=== PATIENT | female | born 1980 | race Caucasian/White ===

== ENCOUNTER 2018-05-10 10:21 | Emergency (ER) | payer OTHER ==
[~2018-05-10] VITALS: Ht 167.6 cm; Wt 68.0 kg
[2018-05-10 10:30] VITALS: BP 141/90
--- NOTE | 2018-05-10 10:57 | PHYS DOC ---
Past History Past Medical History: CVA Past Surgical History: Hysterectomy Alcohol Use: Rarely Drug Use: None Adult General Chief Complaint Chief Complaint: ANKLE PROBLEM HPI HPI 37-year-old female patient states she twisted her right ankle this morning and complaining of pain that is worse with bearing weight and walking. Patient states she had broken the same ankle previously and concerns for another fracture. Patient denies other injuries and no neurovascular deficit. Patient does have numbness of medial side of right foot since her injury 2 years ago. Review of Systems Review of Systems Constitutional: Denies fever or chills [] Eyes: Denies change in visual acuity, redness, or eye pain [] HENT: Denies nasal congestion or sore throat [] Respiratory: Denies cough or shortness of breath [] Cardiovascular: No additional information not addressed in HPI [] GI: Denies abdominal pain, nausea, vomiting, bloody stools or diarrhea [] : Denies dysuria or hematuria [] Musculoskeletal: Denies back pain , reports joint pain [] Integument: Denies rash or skin lesions [] Neurologic: Denies headache, focal weakness , reports sensory changes [] Endocrine: Denies polyuria or polydipsia [] All other systems were reviewed and found to be within normal limits, except as documented in this note. Current Medications Current Medications Current Medications Medications (Trade) Dose Ordered Sig/[facility] Start Time Stop Time Status Last Admin Dose Admin Naproxen (Naprosyn) 500 mg 1X ONCE 05/10/18 10:45 05/10/18 10:46 UNV Physical Exam Physical Exam Constitutional: Well developed, well nourished, mild distress, non-toxic appearance. [] HENT: Normocephalic, atraumatic Eyes: PERRLA, EOMI, conjunctiva normal, no discharge. [] Neck: Normal range of motion, no tenderness, supple, no stridor. [] Cardiovascular:Heart rate regular rhythm, no murmu Skin: Warm, dry, no erythema, no rash. [] Back: No tenderness, no CVA tenderness. [] Extremities: Left ankle without deformity or edema, mild tenderness without limited range of motion, no cyanosis, no clubbing, no edema. [] Neurologic: Alert and oriented X 3, normal motor function, normal sensory function, no focal deficits noted. [] Psychologic: Affect normal, judgement normal, mood normal. [] Current Patient Data Vital Signs Vital Signs Date Time Temp Pulse Resp B/P (MAP) Pulse Ox O2 Delivery O2 Flow Rate FiO2 05/10/18 10:30 98.2 94 22 98 Room Air EKG EKG [] Radiology/Procedures Radiology/Procedures [][address] [address] IMAGING REPORT Signed PATIENT: JEMAL ROUSSEAU ACCOUNT: [id number] : 1980 LOCATION: ER AGE: 37 SEX: F EXAM STATUS: REG ER ORD. PHYSICIAN: NAYELI VERGARA MD REASON: injury PROCEDURE: ANKLE RIGHT 3V Right ankle, 3 views, 05/10/2018: HISTORY: Ankle injury No acute fracture or dislocation is identified. There is mild subcutaneous edema. IMPRESSION: No acute bony abnormality is detected. Electronically signed by: Aguilar Gaytan MD (05/10/2018 11:19 AM) [facility] DICTATED AND SIGNED BY: AGUILAR GAYTAN MD DATE: 05/10/18 1118 CC: NGUYEN GOMEZ; NAYELI VERGARA MD ~ Course & Med Decision Making Course & Med Decision Making Pertinent Imaging studies reviewed. (See chart for details) discharge: I've spoken with the patient and/or caregivers. I've explained the patient's condition, diagnosis and treatment plan based on information available to me at this time. I've answered the patient's and/or caregivers questions and addressed any concerns. The patient and/or caregivers have a good understanding the patient's diagnosis, condition and treatment plan as can be expected at this point. Vital signs have been stabilized. The patient's condition is stable for discharge from the emergency department. The patient will pursue further outpatient evaluation with her primary care provider or other designated consulting physician as outlined in the discharge instructions. Patient and/or caregivers are agreeable to this plan of care and follow-up instructions have been explained in detail. The patient and/or caregivers have received these instructions in written format and expressed understanding of these discharge instructions. The patient and her caregivers are aware that if any significant change in condition or worsening of symptoms should prompt him to immediately return to this of the closest emergency department. If an emergent department is not readily available I would encourage him to call 911. [] Marco Disclaimer Dragon Disclaimer This electronic medical record was generated, in whole or in part, using a voice recognition dictation system. Departure Departure: Impression: Primary Impression: Right ankle sprain Disposition: HOME, SELF-CARE (at 11:30) Condition: STABLE Referrals: NGUYEN GOMEZ (PCP) Patient Instructions: Ankle Sprain Additional Instructions: Plan ice on the affected area Follow-up with your primary care physician in 3-5 days Return to ER if not getting better Scripts Hydrocodone Bit/Acetaminophen (NORCO 5-325 TABLET) 1 Each Tablet 1 TAB PO PRN Q6HRS PRN for PAIN, #10 TAB 0 Refills Prov: NAYELI VERGARA MD 05/10/18 Naproxen (NAPROSYN) 500 Mg Tablet 1 TAB PO BID, #20 TAB Prov: NAYELI VERGARA MD 05/10/18 NAYELI VERGARA MD May 10, 2018 10:57
--- NOTE | 2018-05-10 11:22 | RAD ---
Right ankle, 3 views, 05/10/2018: HISTORY: Ankle injury No acute fracture or dislocation is identified. There is mild subcutaneous edema. IMPRESSION: No acute bony abnormality is detected. Electronically signed by: Aguilar Gaytan MD (05/10/2018 11:19 AM) [facility]
[2018-05-10] MEDS ORDERED: NAPROXEN 500 MG TABLET PO ONE (11:30)
[2018-05-10] MEDS ORDERED: HYDR-971 PO (11:33)
[2018-05-10] MEDS ORDERED: NAPR-683 PO (11:33)
== END 2018-05-10 11:45 | disposition home or self-care (01) ==
LOC: ER 10:21
DX: S93.401A Sprain of unspecified ligament of right ankle, initial encounter (principal); Z86.73 Personal history of transient ischemic attack (TIA), and cerebral infarction without residual deficits; X50.9XXA Other and unspecified overexertion or strenuous movements or postures, initial encounter; Y93.89 Activity, other specified; Y99.8 Other external cause status; Y92.89 Other specified places as the place of occurrence of the external cause
CPT/HCPCS: 29515; 73610; 99284

== ENCOUNTER → 2018-06-21 | Outpatient (CLI) | payer OTHER ==
[~2018-06-21] MED LIST: HYDR-971 PO; NAPR-683 PO
[2018-06-21 11:11] LABS: BARBITURATES NEG (NEG); BENZODIAZEPINES NEG (NEG); CANNABINOIDS NEG (NEG); COCAINE NEG (NEG); METHADONE NEG (NEG); OPIATES NEG (NEG); PHENCYCLIDINE NEG (NEG)
[2018-06-21 11:12] LABS: AMPHETAMINE/METHAMPHETAMINE NEG (NEG)
== END | disposition home or self-care (01) ==
LOC: SURG 09:23
PROVIDERS: ATTEND Anesthesiology
DX: Z01.818 Encounter for other preprocedural examination (principal); F11.90 Opioid use, unspecified, uncomplicated
CPT/HCPCS: 36415; 80307; 99204; G0479

== ENCOUNTER 2018-08-15 13:18 | Emergency (ER) | payer OTHER ==
[~2018-08-15] VITALS: Ht 167.6 cm; Wt 81.6 kg
[2018-08-15] MEDS ORDERED: IV NORMAL SALINE 1,000ML 1,000 ML IV SCH (13:47)
[2018-08-15 13:48] VITALS: BP 136/91
[2018-08-15 14:23] LABS: BASO # 0.1 x10^3/uL (0.0-0.2); BASO % 1 % (0-3); EOS # 0.4 x10^3/uL (0.0-0.7); EOS % 6 % (0-3); HEMATOCRIT 40.5 % (36.0-47.0); HEMOGLOBIN 13.9 g/dL (12.0-15.5); LYMPH # 2.2 x10^3/uL (1.0-4.8); LYMPH % 34 % (24-48); MEAN CORPUSCULAR HEMOGLOBIN 33 pg (25-35); MEAN CORPUSCULAR HGB CONC 34 g/dL (31-37); MEAN CORPUSCULAR VOLUME 95 fL (79-100); MONO # 0.4 x10^3/uL (0.0-1.1); MONO % 6 % (0-9); NEUT # 3.5 x10^3uL (1.8-7.7); NEUT % 54 % (31-73); PLATELET COUNT 325 x10^3/uL (140-400); RED BLOOD COUNT 4.25 x10^6/uL (3.50-5.40); RED CELL DISTRIBUTION WIDTH 13.4 % (11.5-14.5); WHITE BLOOD COUNT 6.5 x10^3/uL (4.0-11.0)
--- NOTE | 2018-08-15 14:33 | RAD ---
AP and Lateral Views of the Chest 08/15/2018 1:47 PM Indication: Palpitations Comparison: None Findings: There is no focal consolidation or infiltrate identified. The cardiomediastinal silhouette is within normal limits. There is no evidence of pneumothorax or pleural effusion. No acute osseous abnormalities are identified. Impression: No evidence of acute cardiopulmonary process. Electronically signed by: Jhonny Bradley MD (08/15/2018 2:30 PM) [facility]
--- NOTE | 2018-08-15 14:34 | RAD ---
CT head without intravenous contrast History: Posterior headache. Pain behind left eye. History of stroke. Comparison: None. Technique: Axial images are obtained of the head from the skull base through the vertex without IV contrast. Exposure: One or more of the following individualized dose reduction techniques were utilized for this examination: 1. Automated exposure control 2. Adjustment of the mA and/or kV according to patient size 3. Use of iterative reconstruction technique Findings: The ventricles are appropriate in size, shape, and location for the patient's age. No obvious intracranial mass, mass-effect, midline shift, hemorrhage or obvious acute infarction is identified. Basilar cisterns are patent. Bone windows demonstrate no acute calvarial abnormality. The visualized paranasal sinuses appear clear. Impression: No acute intracranial process. Please note that CT can be relatively insensitive to acute ischemic infarction for up to 24 hours after symptom onset. Electronically signed by: Jeff King MD (08/15/2018 2:31 PM) [facility]
[2018-08-15 14:38] LABS: ALBUMIN 3.9 g/dL (3.4-5.0); ALBUMIN/GLOBULIN RATIO 1.1 (1.0-1.7); CALCIUM 9.3 mg/dL (8.5-10.1); CREATININE 0.9 mg/dL (0.6-1.0); GFR 70.5; MAGNESIUM 1.7 mg/dL (1.8-2.4); TOTAL BILIRUBIN 0.1 mg/dL (0.2-1.0); TOTAL PROTEIN 7.3 g/dL (6.4-8.2)
[2018-08-15] MEDS ORDERED: KETOROLAC 30 MG/ML VIAL. IV ONE (15:00)
[2018-08-15] MEDS ORDERED: MAGNESIUM OXIDE 400 MG TABLET PO ONE (15:00)
[2018-08-15] MEDS ORDERED: NAPR-683 PO (15:23)
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
--- NOTE | 2018-08-15 16:34 | EKG ---
[address] [address] Test Date: 2018-08-15 Test Time: 13:42:08 Pat Name: JEMAL RUSSO Department: Room: Gender: F Intelligence Applications: : 1980 Requested By: NAYELI VERGARA Order Number: [id number] Reading MD: Suleman Rodriguez MD Measurements Intervals Hanna Rate: 105 P: 62 DE: 114 QRS: 64 QRSD: 84 T: 48 QT: 332 QTc: 443 Interpretive Statements SINUS TACHYCARDIA Electronically Signed On 08-18-2018 11:48:37 CDT by Suleman Rodriguez MD
== END 2018-08-15 15:58 | disposition home or self-care (01) ==
LOC: ER 13:18
DX: F41.0 Panic disorder [episodic paroxysmal anxiety] (principal); R42 Dizziness and giddiness; R51 Headache; R00.2 Palpitations; E83.42 Hypomagnesemia; R79.89 Other specified abnormal findings of blood chemistry; Z86.73 Personal history of transient ischemic attack (TIA), and cerebral infarction without residual deficits; E78.00 Pure hypercholesterolemia, unspecified; Z88.2 Allergy status to sulfonamides; Z88.5 Allergy status to narcotic agent
CPT/HCPCS: 36415; 70450; 71046; 80053; 83735; 84484; 85025; 93005; 96361; 96374; 99285; J1885; J7030

== ENCOUNTER → 2018-09-20 | Outpatient (CLI) | payer OTHER ==
[~2018-09-20] MED LIST changes: +BUPIVACAINE MPF 0.5% 30 ML VIAL. ONE; +CYCL-331 PO; +HYDR-3165 PO; -HYDR-971 PO; +methylPREDNISolone ACETATE 40 MG/ML VIAL. ONE
== END | disposition home or self-care (01) ==
LOC: SURG 09:13
PROVIDERS: ATTEND Anesthesiology
DX: M79.18 Myalgia, other site (principal); G89.4 Chronic pain syndrome; Z86.73 Personal history of transient ischemic attack (TIA), and cerebral infarction without residual deficits; M19.90 Unspecified osteoarthritis, unspecified site; M47.26 Other spondylosis with radiculopathy, lumbar region; Z88.2 Allergy status to sulfonamides; Z88.6 Allergy status to analgesic agent; Z79.899 Other long term (current) drug therapy; Z90.710 Acquired absence of both cervix and uterus
CPT/HCPCS: 20552; J1030; J3490; 20553

== ENCOUNTER 2018-10-01 18:11 | Emergency (ER) | payer OTHER ==
[~2018-10-01] VITALS: Ht 167.6 cm; Wt 84.4 kg
[2018-10-01 18:11] VITALS: BP 139/76
[~2018-10-01 18:11] MED LIST changes: -BUPIVACAINE MPF 0.5% 30 ML VIAL. ONE; -CYCL-331 PO; -methylPREDNISolone ACETATE 40 MG/ML VIAL. ONE
[2018-10-01] MEDS ORDERED: oxyCODONE/APAP 7.5/325 1 TAB TABLET PO ONE (19:00)
[2018-10-01] MEDS ORDERED: CYCLOBENZAPRINE 10 MG TABLET. PO ONE (19:00)
--- NOTE | 2018-10-01 19:34 | RAD ---
PQRS Compliance Statement: One or more of the following individualized dose reduction techniques were utilized for this examination: 1. Automated exposure control 2. Adjustment of the mA and/or kV according to patient size 3. Use of iterative reconstruction technique CT cervical spine spine without contrast 10/01/2018 7:06 PM INDICATION: Neck injury tonight. Pain at the base of the neck radiating to the shoulders and upper back. COMPARISON: None available TECHNIQUE: Multiple axial CT images of the cervical spine were obtained without intravenous contrast. Coronal and sagittal reformats are provided. FINDINGS: There is straightening of the normal cervical lordosis. Otherwise, no significant spondylolisthesis. Skull base is intact. Craniocervical junction is normal in appearance. Atlantoaxial articulation is normal. Vertebral body heights are maintained without evidence for acute fracture. Lucency involving an anterior marginal osteophyte at the anterior inferior margin of C5 is favored to be chronic as it is well corticated. No significant prevertebral edema. Facet joints are within normal limits. No significant osseous neural foraminal stenosis. No significant osseous spinal canal stenosis. Transverse foramen are intact. There is no prevertebral soft tissue swelling. Thyroid gland is normal in appearance. Visualized portions of the lung apices are normal without evidence for suspicious pulmonary nodule or infiltrate. IMPRESSION: 1. No acute fracture or malalignment of the cervical spine. Electronically signed by: Kaylynn Salvador MD (10/01/2018 7:30 PM) [facility]
[2018-10-01] MEDS ORDERED: CYCL-331 PO (19:40)
[2018-10-01] MEDS ORDERED: HYDR-3165 PO (19:40)
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
== END 2018-10-01 19:48 | disposition home or self-care (01) ==
LOC: ER 18:11
DX: S13.4XXA Sprain of ligaments of cervical spine, initial encounter (principal); S23.3XXA Sprain of ligaments of thoracic spine, initial encounter; F41.9 Anxiety disorder, unspecified; E78.00 Pure hypercholesterolemia, unspecified; Z86.73 Personal history of transient ischemic attack (TIA), and cerebral infarction without residual deficits; Z90.710 Acquired absence of both cervix and uterus; Z88.2 Allergy status to sulfonamides; Z88.5 Allergy status to narcotic agent; W50.0XXA Accidental hit or strike by another person, initial encounter; Y93.89 Activity, other specified; Y92.89 Other specified places as the place of occurrence of the external cause; Y99.8 Other external cause status
CPT/HCPCS: 72125; 99284-25

== ENCOUNTER 2018-12-14 12:14 | Emergency (ER) | payer OTHER ==
[~2018-12-14] VITALS: Ht 167.6 cm; Wt 83.9 kg
[~2018-12-14 12:14] MED LIST changes: +CYCL-331 PO
[2018-12-14] MEDS ORDERED: diphenhydrAMINE 50 MG/ML VIAL IV ONE (12:53)
[2018-12-14] MEDS ORDERED: KETOROLAC 30 MG/ML VIAL. IV ONE (12:53)
[2018-12-14] MEDS ORDERED: ONDANSETRON PF 4 MG/2 ML VIAL. ONE (12:53)
[2018-12-14] MEDS ORDERED: IV NORMAL SALINE 1,000ML 1,000 ML IV SCH (12:53)
[2018-12-14] MEDS ORDERED: KETOROLAC 30 MG/ML VIAL. ONE (12:53)
[2018-12-14] MEDS ORDERED: ONDANSETRON PF 4 MG/2 ML VIAL. IV ONE (12:53)
[2018-12-14] MEDS ORDERED: diphenhydrAMINE 50 MG/ML VIAL ONE (12:53)
[2018-12-14 14:48] VITALS: BP 109/76
[2018-12-14 14:55] LABS: CALCIUM 8.6 mg/dL (8.5-10.1); CREATININE 0.8 mg/dL (0.6-1.0); GFR 80.7; POTASSIUM 3.9 mmol/L (3.5-5.1)
[2018-12-14 14:59] LABS: BASO % 0 % (0-3); EOS # 0.3 x10^3/uL (0.0-0.7); EOS % 3 % (0-3); HEMATOCRIT 39.2 % (36.0-47.0); HEMOGLOBIN 13.3 g/dL (12.0-15.5); LYMPH % 26 % (24-48); MEAN CORPUSCULAR HEMOGLOBIN 33 pg (25-35); MEAN CORPUSCULAR HGB CONC 34 g/dL (31-37); MEAN CORPUSCULAR VOLUME 96 fL (79-100); MONO # 0.4 x10^3/uL (0.0-1.1); MONO % 5 % (0-9); NEUT # 5.1 x10^3uL (1.8-7.7); NEUT % 66 % (31-73); PLATELET COUNT 285 x10^3/uL (140-400); RED BLOOD COUNT 4.07 x10^6/uL (3.50-5.40); RED CELL DISTRIBUTION WIDTH 12.9 % (11.5-14.5); WHITE BLOOD COUNT 7.8 x10^3/uL (4.0-11.0)
== END 2018-12-14 14:37 | disposition home or self-care (01) ==
LOC: ER 12:14
DX: R51 Headache (principal); R30.0 Dysuria; R35.0 Frequency of micturition; R07.9 Chest pain, unspecified; F17.200 Nicotine dependence, unspecified, uncomplicated; Z90.710 Acquired absence of both cervix and uterus
CPT/HCPCS: 36415; 80048; 85025; 96374; 96375; 99283; J1200; J1885; J2405; J7030

== ENCOUNTER 2019-02-17 14:24 | Emergency (ER) | payer OTHER ==
[~2019-02-17] VITALS: Ht 167.6 cm; Wt 86.5 kg
[2019-02-17] MEDS ORDERED: FAMOTIDINE 20 MG/2 ML VIAL IVP ONE (15:15)
[2019-02-17] MEDS ORDERED: ONDANSETRON PF 4 MG/2 ML VIAL. IV ONE (15:15)
[2019-02-17] MEDS ORDERED: IV NORMAL SALINE 1,000ML 1,000 ML IV ONE (15:15)
--- NOTE | 2019-02-17 15:28 | PHYS DOC ---
Past History Past Medical History: Anxiety, CVA, High Cholesterol, Migraines, TIA, Other Past Surgical History: Hysterectomy Alcohol Use: Occasionally Drug Use: None Adult General Chief Complaint Chief Complaint: NAUSEA/VOMITING/DIARRHEA HPI HPI Patient is a 38 year old female who presents with nausea, vomiting, and diarrhea since Wednesday. She states it started after eating at [employer] for lunch. Dr. Curtis prescribed her Flagyl for "food poisoning", but she hasn't been able to take it consistently because the taste of it makes her vomit. She also complains of intermittent palpitations and SOB, due to increased anxiety and dehydration. She denies any blood in vomit or stool, although there is some blood on the toilet paper when wiping sometimes. Patient denies any recent travel. Her youngest child has been sick with b/l otitis media for the last week. Denies . Review of Systems Review of Systems Constitutional: Admits fever, chills, diaphoresis. Appears anxious. Eyes: Denies change in visual acuity, redness, or eye pain [] HENT: Denies nasal congestion or sore throat [] Respiratory: Denies cough. Cardiovascular: Denies CP. reports intermittent palpitations. GI: Reports nausea, vomiting, and diarrhea : Denies dysuria or hematuria [] Musculoskeletal: Reports chronic back pain. Integument: Denies rash or skin lesions [] Neurologic: Denies headache, focal weakness or sensory changes [] Complete systems were reviewed and found to be within normal limits, except as documented in this note. Current Medications Current Medications Current Medications Medications (Trade) Dose Ordered Sig/Mayito Start Time Stop Time Status Last Admin Dose Admin Famotidine (Pepcid Vial) 20 mg 1X ONCE 02/17/19 15:15 02/17/19 15:16 UNV Ketorolac Tromethamine (Toradol 30mg Vial) 15 mg 1X ONCE 02/17/19 15:15 02/17/19 15:16 UNV Ondansetron HCl (Zofran) 4 mg 1X ONCE 02/17/19 15:15 02/17/19 15:16 UNV Sodium Chloride 1,000 ml @ 1,000 mls/hr 1X ONCE 02/17/19 15:15 02/17/19 16:14 UNV Allergies Allergies Allergies Coded Allergies Type Severity Reaction Last Updated Verified Sulfa (Sulfonamide Antibiotics) Allergy Severe 02/17/19 Yes morphine Allergy Intermediate 02/17/19 Yes acetaminophen Allergy Unknown 02/17/19 Yes codeine Allergy Unknown 02/17/19 Yes oxycodone Allergy Unknown 02/17/19 Yes tramadol Allergy Unknown 02/17/19 Yes Physical Exam Physical Exam Constitutional: Clammy, anxious appearing 38 yo woman. HENT: Normocephalic, atraumatic, oropharynx moist Eyes: EOMI, conjunctiva normal, no discharge. [] Neck: Normal range of motion, no tenderness, supple Cardiovascular: Heart rate regular rhythm, no murmur [] Lungs & Thorax: Bilateral breath sounds clear to auscultation [] Abdomen: Soft, mild tenderness diffusely Skin: Warm, clammy, mild erythema, no rash. [] Extremities: No tenderness, ROM intact, no edema. [] Neurologic: Alert and oriented X 3, normal motor function, normal sensory function, no focal deficits noted. [] Psychologic: Affect anxious, judgement normal EKG EKG [] Radiology/Procedures Radiology/Procedures [] Course & Med Decision Making Course & Med Decision Making Ms. Messina is a 38 yo female who presented with 5 days of nausea, vomiting, and diarrhea. Patient appeared dehydrated on exam. Labs obtained and posted to chart. Fluid resuscitation ordered. Zofran and Ketorolac administered for nausea and pain with interval improvement. Abdomen non-peritoneal. Symptoms more likely viral in nature. Patient advised to continue holding antibiotics at this time. Patient stable for discharge with outpatient follow-up with PCP. Discussed findings and plan with patient, who acknowledges understanding and agreement. Dragon Disclaimer Dragon Disclaimer This electronic medical record was generated, in whole or in part, using a voice recognition dictation system. Departure Departure: Impression: Primary Impression: Abdominal pain Additional Impression: Nausea vomiting and diarrhea Disposition: 01 HOME, SELF-CARE Condition: STABLE Referrals: ANNAMARIA MCGRATH DO (PCP) Patient Instructions: Abdominal Pain (Nonspecific), Diarrhea, [id number], Diet for Diarrhea, Adult, Nausea and Vomiting, [id number] Scripts Hyoscyamine Sulfate (LEVSIN-SL) 0.125 Mg Tab.subl 1-2 TAB SL PRN Q4HRS PRN for PAIN, #20 TAB Prov: DYLAN XAVIER DO 02/17/19 Famotidine (PEPCID) 20 Mg Tablet 1 TAB PO BID for gastritis, #20 TAB Prov: DYLAN XAVIER DO 02/17/19 Ondansetron (ONDANSETRON ODT) 4 Mg Tab.rapdis 1 TAB PO PRN Q6-8HRS for NAUSEA, #16 TAB Prov: DYLAN XAVIER DO 02/17/19 Problem Qualifiers Primary Impression: Abdominal pain Abdominal location: generalized Qualified Codes: R10.84 - Generalized abdo jeni pain DYLAN XAVIER DO February 17, 2019 15:28
[2019-02-17] MEDS ORDERED: KETOROLAC 15 MG/ML VIAL. IV ONE (15:30)
[2019-02-17 16:05] LABS: BASO # 0.1 x10^3/uL (0.0-0.2); BASO % 1 % (0-3); EOS # 0.1 x10^3/uL (0.0-0.7); EOS % 1 % (0-3); HEMATOCRIT 41.7 % (36.0-47.0); HEMOGLOBIN 14.4 g/dL (12.0-15.5); LYMPH # 2.1 x10^3/uL (1.0-4.8); LYMPH % 20 % (24-48); MEAN CORPUSCULAR HEMOGLOBIN 33 pg (25-35); MEAN CORPUSCULAR HGB CONC 34 g/dL (31-37); MEAN CORPUSCULAR VOLUME 96 fL (79-100); MONO # 0.7 x10^3/uL (0.0-1.1); MONO % 7 % (0-9); NEUT # 7.4 x10^3uL (1.8-7.7); NEUT % 72 % (31-73); PLATELET COUNT 338 x10^3/uL (140-400); RED BLOOD COUNT 4.33 x10^6/uL (3.50-5.40); RED CELL DISTRIBUTION WIDTH 13.8 % (11.5-14.5); WHITE BLOOD COUNT 10.4 x10^3/uL (4.0-11.0)
[2019-02-17 16:34] LABS: ALBUMIN 3.8 g/dL (3.4-5.0); ALBUMIN/GLOBULIN RATIO 0.9 (1.0-1.7); CALCIUM 9.2 mg/dL (8.5-10.1); GFR 62.4; MAGNESIUM 1.9 mg/dL (1.8-2.4); POTASSIUM 3.7 mmol/L (3.5-5.1); TOTAL BILIRUBIN 0.3 mg/dL (0.2-1.0); TOTAL PROTEIN 7.9 g/dL (6.4-8.2)
[2019-02-17 18:12] LABS: BACTERIA,URINE 0 /HPF (0-FEW); BILIRUBIN,URINE NEG (NEG); CLARITY,URINE CLEAR; COLOR,URINE YELLOW; GLUCOSE,URINE NEG (NEG); NITRITE,URINE NEG (NEG); RBC,URINE 0 /HPF (0-2); SQUAMOUS EPITHELIAL CELL,UR OCC /LPF; UROBILINOGEN,URINE 0.2 mg/dL (0.2 mg/dL); WBC,URINE OCC /HPF (0-4)
[2019-02-17] MEDS ORDERED: FAMO-63 PO (18:30)
[2019-02-17] MEDS ORDERED: HYOS0.1265 SL (18:30)
[2019-02-17] MEDS ORDERED: ONDA4TAB12 PO (18:30)
[2019-02-17 19:04] VITALS: BP 147/69
== END 2019-02-17 19:04 | disposition home or self-care (01) ==
LOC: ER 14:24
DX: R11.2 Nausea with vomiting, unspecified (principal); R19.7 Diarrhea, unspecified; R10.84 Generalized abdominal pain; F41.9 Anxiety disorder, unspecified; E78.00 Pure hypercholesterolemia, unspecified; G43.909 Migraine, unspecified, not intractable, without status migrainosus; Z90.710 Acquired absence of both cervix and uterus; Z86.73 Personal history of transient ischemic attack (TIA), and cerebral infarction without residual deficits; Z88.2 Allergy status to sulfonamides; Z88.5 Allergy status to narcotic agent; Z88.6 Allergy status to analgesic agent
CPT/HCPCS: 36415; 80053; 81001; 81025; 83690; 83735; 85025; 96361; 96374; 96375; 99285; J1885; J2405; J3490; J7030

== ENCOUNTER 2019-06-15 16:48 | Emergency (ER) | payer OTHER ==
[~2019-06-15] VITALS: Ht 167.6 cm; Wt 86.5 kg
[~2019-06-15 16:48] MED LIST changes: +FAMO-63 PO; +HYOS0.1265 SL; +ONDA4TAB12 PO
--- NOTE | 2019-06-15 18:04 | PHYS DOC ---
Past History Past Medical History: Anxiety, CVA, High Cholesterol, Migraines, TIA, Other (DARRICK SPARROW DO) Past Surgical History: Hysterectomy (DARRICK SPARROW DO) Alcohol Use: Occasionally Drug Use: None (DARRICK SPARROW DO) Adult General Chief Complaint Chief Complaint: LOWER EXTREMITY SWELLING [facility] HPI 38-year-old female presents with bilateral shoulder swelling. The right lower leg is swollen worse than the left. The patient had surgery on this ankle in March. This swelling has increased over the last 2-3 days. Her skin feels very tight and she has never had lower extremity swelling. She tried again to her doctor and to help limits. The advised that she come to the ED. The patient has an unknown inflammatory disorder. She is multiple rounds of testing, but no one has made an official diagnosis. She denies fever, chills, chest pain, shortness of breath. No recent trauma or falls. (DARRICK SPARROW DO) Review of Systems Review of Systems Constitutional: Denies fever or chills [] Eyes: Denies change in visual acuity, redness, or eye pain [] HENT: Denies nasal congestion or sore throat [] Respiratory: Denies cough or shortness of breath [] Cardiovascular: No additional information not addressed in HPI [] GI: Denies abdominal pain, nausea, vomiting, bloody stools or diarrhea [] : Denies dysuria or hematuria [] Musculoskeletal: Bilateral lower extremity swelling[] Integument: Denies rash or skin lesions [] Neurologic: Denies headache, focal weakness or sensory changes [] Endocrine: Denies polyuria or polydipsia [] All other systems were reviewed and found to be within normal limits, except as documented in this note. (DARRICK SPARROW DO) Allergies Allergies Allergies Coded Allergies Type Severity Reaction Last Updated Verified Sulfa (Sulfonamide Antibiotics) Allergy Severe 02/17/19 Yes morphine Allergy Intermediate 02/17/19 Yes acetaminophen Allergy Unknown 02/17/19 Yes codeine Allergy Unknown 02/17/19 Yes oxycodone Allergy Unknown 02/17/19 Yes tramadol Allergy Unknown 02/17/19 Yes (DARRICK SPARROW DO) Physical Exam Physical Exam Constitutional: Well developed, well nourished, no acute distress, non-toxic appearance. [] HENT: Normocephalic, atraumatic, bilateral external ears normal, oropharynx moist, no oral exudates, nose normal. [] Eyes: PERRLA, EOMI, conjunctiva normal, no discharge. [] Neck: Normal range of motion, no tenderness, supple, no stridor. [] Cardiovascular:Heart rate regular rhythm, no murmur [] Lungs & Thorax: Bilateral breath sounds clear to auscultation [] Abdomen: Bowel sounds normal, soft, no tenderness, no masses, no pulsatile masses. [] Skin: Warm, dry, no erythema, no rash. [] Back: No tenderness, no CVA tenderness. [] Extremities: No tenderness, no cyanosis, no clubbing, ROM intact, 3+ nonpitting edema to the knees bilaterally. Right lower extremity greater in diameter than left.[] Neurologic: Alert and oriented X 3, normal motor function, normal sensory function, no focal deficits noted. [] Psychologic: Affect normal, judgement normal, mood normal. [] (DARRICK SPARROW DO) EKG EKG [] (DARRICK SPARROW DO) Radiology/Procedures Radiology/Procedures [] (DARRICK SPARROW DO) Course & Med Decision Making Course & Med Decision Making Pertinent Labs and Imaging studies reviewed. (See chart for details) The patient's workup is pending. I'm signing her out to Dr. Conde and at 1803. He will follow-up on her results and determine her final disposition. [] (DARRICK SPARROW DO) Course & Med Decision Making S/O FROM ANDREWS Impression: 1. There is no evidence of deep venous thrombosis from the bilateral common femoral to the popliteal veins. Electronically signed by: Anthony Vargas MD (06/15/2019 7:37 PM) [facility] DICTATED AND SIGNED BY: ANTHONY VARGAS MD DATE: 06/15/191936 CC: DARRICK SPARROW DO; ERIN APONTE MD; ANNAMARIA MCGRATH DO ~ LABS LOOK GOOD RE-EVAL, PT DOES HAVE LOWER EXT EDEMA AND ALSO SOME RASH AND EXCORIATION TO MID BACK WELL, CONSIDER ALLERGIC ETIOLOGY. FOR NOW TRIAL OF LASIX GIVEN THE OBVIOUS EDEMA, SHE THINKS SHE MIGHT BE ALLERGIC TO VICOPROFEN SHE WILL TALK TO HER PAIN MGMT DOCTOR ABOUT THAT FOR AN ALTERNATIVE NO DVT PT REASSURED. (ERIN APONTE MD) Dragon Disclaimer Dragon Disclaimer This electronic medical record was generated, in whole or in part, using a voice recognition dictation system. (DARRICK SPARROW DO) Departure Departure: Impression: Primary Impression: Lower extremity edema Disposition: HOME, SELF-CARE Condition: STABLE Referrals: ANNAMARIA MCGRATH DO (PCP) Scripts Furosemide (FUROSEMIDE) 20 Mg Tablet 1 TAB PO DAILY for edema, #20 TAB 0 Refills Prov: ERIN APONTE MD 06/15/19 DARRICK SPARROW DO Jun 15, 2019 18:04 ERIN APONTE MD Jun 15, 2019 22:09
--- NOTE | 2019-06-15 19:39 | RAD ---
Bilateral lower extremity venous doppler ultrasound History: Bilateral lower extremity swelling for 3 days, previous right ankle surgery in March Comparison: None Findings: Multiple grayscale, color, and duplex spectral analysis sonographic images were acquired of the bilateral lower extremity veins to evaluate for the presence of DVT. There is normal phasicity. Normal compression, color-flow, and augmentation is demonstrated from the bilateral common femoral to the popliteal veins. There is normal color flow of the proximal greater saphenous and profunda femoris veins. There is normal color flow of segments of the calf veins. Impression: 1. There is no evidence of deep venous thrombosis from the bilateral common femoral to the popliteal veins. Electronically signed by: Sonny Urban MD (06/15/2019 7:37 PM) [facility]
[2019-06-15 19:55] LABS: BASO % 1 % (0-3); EOS # 0.3 x10^3/uL (0.0-0.7); EOS % 3 % (0-3); HEMATOCRIT 38.5 % (36.0-47.0); HEMOGLOBIN 12.6 g/dL (12.0-15.5); LYMPH # 2.3 x10^3/uL (1.0-4.8); LYMPH % 27 % (24-48); MEAN CORPUSCULAR HEMOGLOBIN 32 pg (25-35); MEAN CORPUSCULAR HGB CONC 33 g/dL (31-37); MEAN CORPUSCULAR VOLUME 99 fL (79-100); MONO # 0.6 x10^3/uL (0.0-1.1); MONO % 7 % (0-9); NEUT # 5.5 x10^3uL (1.8-7.7); NEUT % 63 % (31-73); PLATELET COUNT 271 x10^3/uL (140-400); RED BLOOD COUNT 3.89 x10^6/uL (3.50-5.40); RED CELL DISTRIBUTION WIDTH 14.4 % (11.5-14.5); WHITE BLOOD COUNT 8.9 x10^3/uL (4.0-11.0)
[2019-06-15 20:11] LABS: ALBUMIN 3.7 g/dL (3.4-5.0); CALCIUM 9.5 mg/dL (8.5-10.1); CREATININE 0.8 mg/dL (0.6-1.0); GFR 80.7; POTASSIUM 3.9 mmol/L (3.5-5.1); TOTAL BILIRUBIN 0.1 mg/dL (0.2-1.0); TOTAL PROTEIN 7.4 g/dL (6.4-8.2)
[2019-06-15] MEDS ORDERED: FURO20TA3 PO (20:28)
[2019-06-15 20:48] LABS: BACTERIA,URINE FEW /HPF (0-FEW); BILIRUBIN,URINE NEG (NEG); CLARITY,URINE CLEAR; COLOR,URINE STRAW; GLUCOSE,URINE NEG (NEG); NITRITE,URINE NEG (NEG); RBC,URINE 0 /HPF (0-2); SQUAMOUS EPITHELIAL CELL,UR OCC /LPF; UROBILINOGEN,URINE 0.2 mg/dL (0.2 mg/dL); WBC,URINE OCC /HPF (0-4)
[2019-06-15 20:52] VITALS: BP 142/87
--- NOTE | 2019-06-16 00:01 | EKG ---
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
== END 2019-06-15 20:53 | disposition home or self-care (01) ==
LOC: ER 16:48
DX: R60.0 Localized edema (principal); R21 Rash and other nonspecific skin eruption; F42.4 Excoriation (skin-picking) disorder; E78.00 Pure hypercholesterolemia, unspecified; G43.909 Migraine, unspecified, not intractable, without status migrainosus; Z86.73 Personal history of transient ischemic attack (TIA), and cerebral infarction without residual deficits; Z88.2 Allergy status to sulfonamides; Z88.5 Allergy status to narcotic agent; Z88.6 Allergy status to analgesic agent
CPT/HCPCS: 36415; 80053; 81001; 84484; 85025; 93005; 93970; 99285

== ENCOUNTER 2019-08-05 11:54 | Emergency (ER) | payer OTHER ==
[~2019-08-05 11:54] MED LIST changes: +FURO20TA3 PO
[2019-08-05 12:07] VITALS: BP 136/99
[2019-08-05] MEDS ORDERED: CYCL-331 PO (12:30)
--- NOTE | 2019-08-05 12:31 | PHYS DOC ---
Past History Past Medical History: No Pertinent History Past Surgical History: Other Additional Past Surgical Histo: right ankle Alcohol Use: None Drug Use: None Adult General Chief Complaint Chief Complaint: BACK PAIN OR INJURY HPI HPI 39-year-old female presenting the emergency department today with atraumatic back pain. She has a history of back pain and is working with physical therapy. 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 The pain is a sharp shooting pain in the low back and is associated with radiation down the right leg. This is similar to her previous back pain. The pain is nonmigratory. She denies any weakness of her lower extremities or upper extremities. It is not a ripping or tearing pain. Review of systems is negative for chest pain shortness of breath fevers chills. All other review of systems is negative. ED course: 31-year-old female presenting the emergency department today with low back pain similar to previous low back pain episodes. Clinical history and physical examination suggestive of sciatica. We'll discharge home with oral Flexeril and Tylenol to follow-up with her doctor in 1-2 days. Allergies Allergies Allergies Coded Allergies Type Severity Reaction Last Updated Verified Sulfa (Sulfonamide Antibiotics) Allergy Severe 02/17/19 Yes morphine Allergy Intermediate 02/17/19 Yes acetaminophen Allergy Unknown 02/17/19 Yes codeine Allergy Unknown 02/17/19 Yes oxycodone Allergy Unknown 02/17/19 Yes tramadol Allergy Unknown 02/17/19 Yes Physical Exam Physical Exam Constitutional: Well developed, well nourished, no acute distress, non-toxic appearance. [] HENT: Normocephalic, atraumatic, bilateral external ears normal, oropharynx moist, no oral exudates, nose normal. [] Eyes: PERRLA, EOMI, conjunctiva normal, no discharge. [] Neck: Normal range of motion, no tenderness, supple, no stridor. [] Cardiovascular:Heart rate regular rhythm, no murmur [] Lungs & Thorax: Bilateral breath sounds clear to auscultation [] Abdomen: Bowel sounds normal, soft, no tenderness, no masses, no pulsatile masses. [] Skin: Warm, dry, no erythema, no rash. [] Back: Tenderness along the right paraspinal musculature into the gluteal musculature. Nontender in the midline of the thoracic or lumbar spine. Extremities: No tenderness, no cyanosis, no clubbing, ROM intact, no edema. [] Neurologic: Alert and oriented X 3, normal motor function, normal sensory function, no focal deficits noted. []5 out of 5 strength in lower extremities bilaterally. Psychologic: Affect normal, judgement normal, mood normal. [] Current Patient Data Vital Signs Vital Signs Date Time Temp Pulse Resp B/P (MAP) Pulse Ox O2 Delivery O2 Flow Rate FiO2 08/05/19 12:07 97.0 98 18 98 Room Air EKG EKG [] Radiology/Procedures Radiology/Procedures [] Course & Med Decision Making Course & Med Decision Making Pertinent Labs and Imaging studies reviewed. (See chart for details) [] Dragon Disclaimer Dragon Disclaimer This electronic medical record was generated, in whole or in part, using a voice recognition dictation system. Departure Departure: Impression: Primary Impression: Back pain Disposition: HOME, SELF-CARE Condition: STABLE Referrals: ANNAMARIA MCGRATH DO (PCP) Patient Instructions: Back Pain, Adult, Sciatica Additional Instructions: Thank you for allowing us to participate in your care today. Return to the emergency department you have any new or worsening symptoms, or if you are concerned for any reason. Return to emergency department if you have any new or concerning symptoms including but not limited to fever, chills, nausea, vomiting, intractable pain, any new rashes, chest pain, shortness of air, uncontrolled bleeding, difficulty breathing, and/or vision loss. Follow up with your primary care physician within 1-2 days. Call your Primary Doctor tomorrow and inform them of your visit today. If you do not have a primary care provider we are happy to provide you with a list of our primary care providers contact information. This condition should be evaluated by your primary care physician and any recommended consulting services for continued management within 2 days after discharge. If at any time, you are having difficulty getting into your primary care doctor or a specialist, return to the emergency department. Scripts Cyclobenzaprine Hcl (CYCLOBENZAPRINE HCL) 10 Mg Tablet 1 TAB PO TID PRN PRN for PAIN, #12 TAB 0 Refills Prov: JN NEGRETE MD 08/05/19 JN NEGRETE MD Aug 05, 2019 12:31
== END 2019-08-05 12:24 | disposition home or self-care (01) ==
LOC: ER 11:54
DX: M54.5 Low back pain (principal); Q79.60 Ehlers-Danlos syndrome, unspecified; Z88.2 Allergy status to sulfonamides; Z88.5 Allergy status to narcotic agent; Z88.6 Allergy status to analgesic agent
CPT/HCPCS: 99283

== ENCOUNTER → 2019-09-20 | Outpatient (CLI) | payer OTHER ==
[~2019-09-20] MED LIST changes: +BUPIVACAINE MPF 0.25% 10 ML VIAL. ONE; +DRON2.5C PO; +FREM225S SQ; +LIDOCAINE 1% PF 30 ML VIAL. ONE; +LORA-254 PO; +MELO15TA6 PO; +PROP10TA PO; +ZOLP10TA PO
[2019-09-20 15:02] VITALS: BP 126/79
== END ==
LOC: SURG 14:02
PROVIDERS: ATTEND Anesthesiology Pain Medicine
DX: M79.18 Myalgia, other site (principal)
CPT/HCPCS: 20553; J2001; J3490

== ENCOUNTER → 2019-11-23 | Outpatient (CLI) | payer OTHER ==
[~2019-11-23] MED LIST changes: +IOHEXOL 300 MG/ML 50 ML VIAL. ONE; +methylPREDNISolone ACETATE 80 MG/ML VIAL. ONE
[2019-11-23 14:02] VITALS: BP 118/77
== END ==
LOC: SURG 12:37
PROVIDERS: ATTEND Anesthesiology Pain Medicine
DX: M46.1 Sacroiliitis, not elsewhere classified (principal); G89.4 Chronic pain syndrome; Z87.39 Personal history of other diseases of the musculoskeletal system and connective tissue; Z86.73 Personal history of transient ischemic attack (TIA), and cerebral infarction without residual deficits; Z90.710 Acquired absence of both cervix and uterus
CPT/HCPCS: 27096; J1040; J2001; J3490; Q9967

== ENCOUNTER 2019-12-11 12:11 | Emergency (ER) | payer OTHER ==
[~2019-12-11] VITALS: Ht 167.6 cm; Wt 98.4 kg
[~2019-12-11 12:11] MED LIST changes: -BUPIVACAINE MPF 0.25% 10 ML VIAL. ONE; -IOHEXOL 300 MG/ML 50 ML VIAL. ONE; -LIDOCAINE 1% PF 30 ML VIAL. ONE; -methylPREDNISolone ACETATE 80 MG/ML VIAL. ONE
--- NOTE | 2019-12-11 14:03 | RAD ---
CT LUMBAR SPINE WO CONTRAST Indication: Severe low back pain. Exposure: One or more of the following individualized dose reduction techniques were utilized for this examination: 1. Automated exposure control 2. Adjustment of the mA and/or kV according to patient size 3. Use of iterative reconstruction technique. Technique: Standard imaging without intravenous contrast. Comparison: None FINDINGS: Vertebral body height is intact. No evidence of acute fracture or aggressive bone destruction. Mild loss of height of lower lumbar discs. Mild retrolisthesis of L5 on S1 only measuring about 2 or 3 mm. There does appear to be mild multilevel disc bulging. This is greatest at L3-L4 and L4-L5 where there is mild spinal canal narrowing. At L4-L5, this is slightly greater in the left paracentral region, presumably due to a disc protrusion. This indents the thecal sac. There is also neural foraminal narrowing left greater than right at this level. No evidence of hydronephrosis or renal calculus. The visualized aorta is nonaneurysmal. IMPRESSION: 1. Degenerative spondylosis. 2. Disc bulging at L3-L4 with mild spinal canal narrowing. 3. Disc bulging with left paracentral disc protrusion at L4-L5, resulting in spinal canal narrowing and effacement upon the left anterior thecal sac, and probable left greater than right neural foraminal narrowing. 4. MRI could better evaluate stenosis and impingement with disc disease. Electronically signed by: Jeff Silva MD (12/11/2019 1:59 PM) [facility]
[2019-12-11] MEDS ORDERED: ORPH-16 PO (14:25)
[2019-12-11] MEDS ORDERED: METH4TAB2 PO (14:25)
[2019-12-11] MEDS ORDERED: DICL50TA4 PO (14:25)
--- NOTE | 2019-12-11 14:25 | PHYS DOC ---
Past History Past Medical History: No Pertinent History Past Surgical History: Other Additional Past Surgical Histo: right ankle Alcohol Use: None Drug Use: None Adult General Chief Complaint Chief Complaint: POST-OP PROBLEM HPI HPI Patient is a 39-year-old female who presents with complaint of issues with ch ronic back pain. Patient states that she is concerned that she may be having a complication associated with epidurals. 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 Patient states that recently she has been having pain in numbness that radiates down her left leg as well as burning pain in her right ankle. She denies any saddle anesthesia and has had no loss of bowel or bladder control. Patient was seen [facility] at [facility] and she was discharged home, stating that there was nothing that they could do for her. Patient states that she talked to her doctor and she states that her doctor said she needed to come in and be seen still.[] Review of Systems Review of Systems Constitutional: Denies fever or chills [] Respiratory: Denies cough or shortness of breath [] Cardiovascular: No additional information not addressed in HPI [] GI: Denies abdominal pain, nausea, vomiting or diarrhea [] : Denies dysuria or hematuria [] Musculoskeletal: Complains of chronic lower back pain [] Integument: Denies rash or skin lesions [] Neurologic: Denies headache, focal weakness or sensory changes [] All other systems were reviewed and found to be within normal limits, except as documented in this note. Allergies Allergies Allergies Coded Allergies Type Severity Reaction Last Updated Verified Sulfa (Sulfonamide Antibiotics) Allergy Severe 02/17/19 Yes morphine Allergy Intermediate 02/17/19 Yes acetaminophen Allergy Unknown 02/17/19 Yes codeine Allergy Unknown 02/17/19 Yes oxycodone Allergy Unknown 02/17/19 Yes tramadol Allergy Unknown 02/17/19 Yes Physical Exam Physical Exam Constitutional: Well developed, well nourished, no acute distress, non-toxic appearance. [] HENT: Normocephalic, atraumatic, bilateral external ears normal, oropharynx moist, no oral exudates, nose normal. [] Eyes: PERRLA, EOMI, conjunctiva normal, no discharge. [] Neck: Normal range of motion, no tenderness, supple, no stridor. [] Cardiovascular: Regular rate and rhythm[] Lungs & Thorax: Bilateral breath sounds clear to auscultation [] Abdomen: Bowel sounds normal, soft. [] Skin: Warm, dry, no erythema, no rash. [] Back: There is tenderness to palpation in the left sacral sulcus and into the left buttock overlying the piriformis. [] Extremities: No tenderness, no cyanosis, no clubbing, ROM intact, no edema. [] Neurologic: Alert and oriented X 3, no focal deficits noted. [] EKG EKG [] Radiology/Procedures Radiology/Procedures [] Impressions: CT LUMBAR SPINE WO CONTRAST Indication: Severe low back pain. Exposure: One or more of the following individualized dose reduction techniques were utilized for this examination: 1. Automated exposure control 2. Adjustment of the mA and/or kV according to patient size 3. Use of iterative reconstruction technique. Technique: Standard imaging without intravenous contrast. Comparison: None FINDINGS: Vertebral body height is intact. No evidence of acute fracture or aggressive bone destruction. Mild loss of height of lower lumbar discs. Mild retrolisthesis of L5 on S1 only measuring about 2 or 3 mm. There does appear to be mild multilevel disc bulging. This is greatest at L3-L4 and L4-L5 where there is mild spinal canal narrowing. At L4-L5, this is slightly greater in the left paracentral region, presumably due to a disc protrusion. This indents the thecal sac. There is also neural foraminal narrowing left greater than right at this level. No evidence of hydronephrosis or renal calculus. The visualized aorta is nonaneurysmal. IMPRESSION: 1. Degenerative spondylosis. 2. Disc bulging at L3-L4 with mild spinal canal narrowing. 3. Disc bulging with left paracentral disc protrusion at L4-L5, resulting in spinal canal narrowing and effacement upon the left anterior thecal sac, and probable left greater than right neural foraminal narrowing. 4. MRI could better evaluate stenosis and impingement with disc disease. Electronically signed by: Jeff Silva MD (12/11/2019 1:59 PM) [facility] DICTATED AND SIGNED BY: JEFF SILVA MD DATE: 12/11/19 4233 CC: SONDRA PARTIDA Jr., DO; RONIT PAINTER DO, MPH ~ Course & Med Decision Making Course & Med Decision Making Pertinent Labs and Imaging studies reviewed. (See chart for details) [] Dragon Disclaimer Dragon Disclaimer This electronic medical record was generated, in whole or in part, using a voice recognition dictation system. Departure Departure: Impression: Primary Impression: Chronic low back pain Additional Impression: Radicular pain of lumbosacral region Disposition: 01 HOME, SELF-CARE Condition: STABLE Referrals: RONIT APINTER DO, MPH (PCP) Patient Instructions: Chronic Back Pain Scripts Orphenadrine Citrate (ORPHENADRINE CITRATE) 100 Mg Tablet.er 1 TAB PO BID PRN for MUSCLE SPASMS, #14 TAB Prov: SONDRA PARTIDA Jr. DO 12/11/19 Methylprednisolone (MEDROL) 4 Mg Tab.ds.pk 1 PKG PO UD for inflammation, #1 PKG Prov: SONDRA PARTIDA Jr. DO 12/11/19 Diclofenac Sodium (DICLOFENAC SODIUM) 50 Mg Tablet.dr 1 TAB PO BID PRN for PAIN, #20 TAB Prov: SONDRA PARTIDA Jr. DO 12/11/19 Problem Qualifiers Primary Impression: Chronic low back pain Back pain laterality: unspecified Sciatica presence: with sciatica Sciatica laterality: sciatica of left side Qualified Codes: M54.42 - Lumbago with sciatica, left side; G89.29 - Other chronic pain SONDRA PARTIDA Jr. DO Dec 11, 2019 14:25
[2019-12-11 15:05] VITALS: BP 122/78
== END 2019-12-11 15:04 | disposition home or self-care (01) ==
LOC: ER 12:11
DX: G89.29 Other chronic pain (principal); M54.42 Lumbago with sciatica, left side; M54.16 Radiculopathy, lumbar region; M25.571 Pain in right ankle and joints of right foot; Z88.2 Allergy status to sulfonamides; Z88.5 Allergy status to narcotic agent; Z88.6 Allergy status to analgesic agent
CPT/HCPCS: 72131; 99284-25

== ENCOUNTER → 2019-12-15 | Day surgery (SDC) | payer OTHER ==
[~2019-12-15] MED LIST changes: +BUPIVACAINE MPF 0.25% 10 ML VIAL. ONE; +DEXAMETHASONE SOD PHOS 4 MG/ML VIAL. ONE; +DICL50TA4 PO; +LIDOCAINE 1% PF 30 ML VIAL. ONE; +METH4TAB2 PO; +MIDAZOLAM HCL PF 2 MG/2 ML VIAL. ONE; +ORPH-16 PO
[2019-12-15 10:11] VITALS: BP 113/78
== END | disposition home or self-care (01) ==
LOC: SURG 08:04
PROVIDERS: ATTEND Anesthesiology Pain Medicine
DX: M47.816 Spondylosis without myelopathy or radiculopathy, lumbar region (principal); M19.90 Unspecified osteoarthritis, unspecified site; Z88.1 Allergy status to other antibiotic agents; Z88.8 Allergy status to other drugs, medicaments and biological substances; Z98.890 Other specified postprocedural states; Z79.899 Other long term (current) drug therapy; Z86.73 Personal history of transient ischemic attack (TIA), and cerebral infarction without residual deficits; Z88.6 Allergy status to analgesic agent; Z90.710 Acquired absence of both cervix and uterus
CPT/HCPCS: 64635; 64636; J1100; J2001; J2250; J3010; J3490; 99152; 99153

== ENCOUNTER → 2020-01-05 | Outpatient (CLI) | payer OTHER ==
[2019-12-15 10:11] VITALS: BP 113/78
[~2020-01-05] MED LIST changes: -BUPIVACAINE MPF 0.25% 10 ML VIAL. ONE; -DEXAMETHASONE SOD PHOS 4 MG/ML VIAL. ONE; -LIDOCAINE 1% PF 30 ML VIAL. ONE; -MIDAZOLAM HCL PF 2 MG/2 ML VIAL. ONE
--- NOTE | 2020-01-05 11:41 | RAD ---
PQRS Compliance Statement: One or more of the following individualized dose reduction techniques were utilized for this examination: 1. Automated exposure control 2. Adjustment of the mA and/or kV according to patient size 3. Use of iterative reconstruction technique CT CHEST WO CONTRAST Clinical Indication: Cough, congestion. Comparison: Two-view chest August 15, 2018. TECHNIQUE: Helical CT imaging of the chest is performed without IV contrast. Findings: Visualized thyroid is symmetric. There is no adenopathy in the chest. The great vessels are normal caliber. Cardiac size normal, no pericardial effusion. There is no pleural effusion. The central airways are patent. There is a 2 mm nodule in the right upper lobe along the minor fissure that may be an intrapulmonary lymph node. Tiny calcified granulomas in the right lower lobe. Punctate calcified granuloma in the left upper lobe. 4 mm nodule in the left lower lobe along the major fissure may be an intrapulmonary lymph node. Punctate calcified granuloma in the left lower lobe. The visualized upper abdomen is unremarkable. Thoracic spine alignment is maintained. IMPRESSION: There are 2 sub-6 mm noncalcified nodules in the lungs along the fissures that may be intrapulmonary lymph nodes. If patient has risk factors for lung malignancy consider CT chest follow-up in 12 months per Fleischner Society guidelines. If patient does not have risk factors no follow-up is required. Electronically signed by: Bill Adams MD (01/05/2020 11:38 AM) [id number]
== END | disposition home or self-care (01) ==
LOC: CT 11:13
DX: R91.8 Other nonspecific abnormal finding of lung field (principal); J84.10 Pulmonary fibrosis, unspecified; J21.8 Acute bronchiolitis due to other specified organisms
CPT/HCPCS: 71250

== ENCOUNTER 2020-02-20 09:32 | Emergency (ER) | payer OTHER ==
[~2020-02-20] VITALS: Ht 167.6 cm; Wt 96.7 kg
[2020-02-20 09:32] VITALS: BP 117/79
[2020-02-20] MEDS ORDERED: ONDANSETRON PF 4 MG/2 ML VIAL. ONE (09:43)
[2020-02-20] MEDS: IV NORMAL SALINE 1,000ML 1,000 ML IV ONE ×2 (09:55→11:03)
[2020-02-20] MEDS: ONDANSETRON PF 4 MG/2 ML VIAL. IVP ONE ×2 (09:55→10:30)
[2020-02-20 10:07] LABS: BASO % 0 % (0-3); EOS # 0.1 x10^3/uL (0.0-0.7); EOS % 1 % (0-3); HEMATOCRIT 39.4 % (36.0-47.0); HEMOGLOBIN 13.3 g/dL (12.0-15.5); LYMPH # 1.2 x10^3/uL (1.0-4.8); LYMPH % 16 % (24-48); MEAN CORPUSCULAR HEMOGLOBIN 33 pg (25-35); MEAN CORPUSCULAR HGB CONC 34 g/dL (31-37); MEAN CORPUSCULAR VOLUME 98 fL (79-100); MONO # 0.4 x10^3/uL (0.0-1.1); MONO % 5 % (0-9); NEUT # 5.8 x10^3uL (1.8-7.7); NEUT % 77 % (31-73); PLATELET COUNT 271 x10^3/uL (140-400); RED BLOOD COUNT 4.04 x10^6/uL (3.50-5.40); RED CELL DISTRIBUTION WIDTH 13.6 % (11.5-14.5); WHITE BLOOD COUNT 7.5 x10^3/uL (4.0-11.0)
[2020-02-20 10:12] LABS: CALCIUM 8.8 mg/dL (8.5-10.1); CREATININE 0.7 mg/dL (0.6-1.0); GFR 93.6; POTASSIUM 3.8 mmol/L (3.5-5.1)
[2020-02-20 10:18] LABS: ALBUMIN 3.4 g/dL (3.4-5.0); ALBUMIN/GLOBULIN RATIO 0.9 (1.0-1.7); TOTAL BILIRUBIN 0.3 mg/dL (0.2-1.0)
--- NOTE | 2020-02-20 10:26 | PHYS DOC ---
Past History Past Medical History: Hypertension, Migraines, Stroke, Other Additional Past Medical Histor: Rebekah-Danols syndrome; chronic back pain Past Surgical History: Hysterectomy, Other Additional Past Surgical Histo: right ankle fx repair Alcohol Use: Occasionally Drug Use: None General Adult EDM: Chief Complaint: HEADACHE HPI: HPI: 39-year-old female presents with migraine headache. She states the global p ressure sensation in her head is similar to her previous migraines. This 1 started 2 days ago. She had several episodes of vomiting yesterday. She woke up this morning and the headache was worse than yesterday so she decided she would have to come in. The patient tried hydration and Fioricet. She has a possible allergy to ketorolac and/or Reglan. She had serious reaction to this combination during a previous hospitalization for serotonin syndrome. She had taken both of these medicines previously without incident. She denies fever chills. She has photophobia. Review of Systems: Review of Systems: Constitutional: Denies fever or chills Eyes: Denies change in visual acuity HENT: Denies nasal congestion or sore throat Respiratory: Denies cough or shortness of breath Cardiovascular: Denies chest pain or edema GI: nausea, vomiting. Denies abdominal pain, bloody stools or diarrhea : Denies dysuria Musculoskeletal: Denies back pain or joint pain Integument: Denies rash Neurologic: Headache. Denies focal weakness or sensory changes Endocrine: Denies polyuria or polydipsia Lymphatic: Denies swollen glands Psychiatric: Denies depression or anxiety Heart Score: Risk Factors: Risk Factors: DM, Current or recent (<one month) smoker, HTN, HLP, family history of CAD, obesity. Risk Scores: Score 0 - 3: 2.5% MACE over next 6 weeks - Discharge Home Score 4 - 6: 20.3% MACE over next 6 weeks - Admit for Clinical Observation Score 7 - 10: 72.7% MACE over next 6 weeks - Early Invasive Strategies Current Medications: Current Meds: Current Medications Medications (Trade) Dose Ordered Sig/Mayito Start Time Stop Time Status Last Admin Dose Admin Ondansetron HCl (Zofran) 4 mg 1X ONCE 02/20/20 10:00 02/20/20 10:01 DC 02/20/20 09:55 4 MG Sodium Chloride 1,000 ml @ 1,000 mls/hr 1X ONCE 02/20/20 10:00 02/20/20 10:59 02/20/20 09:55 1,000 MLS/HR Allergies: Allergies: Allergies Coded Allergies Type Severity Reaction Last Updated Verified Sulfa (Sulfonamide Antibiotics) Allergy Severe 02/17/19 Yes tetracycline Allergy Severe . 02/20/20 Yes morphine Allergy Intermediate 02/17/19 Yes acetaminophen Allergy Unknown 02/17/19 Yes codeine Allergy Unknown 02/17/19 Yes ketorolac Allergy Unknown 12/13/19 Yes metoclopramide Allergy Unknown 12/13/19 Yes oxycodone Allergy Unknown 02/17/19 Yes sumatriptan Allergy Unknown 12/13/19 Yes tramadol Allergy Unknown 02/17/19 Yes Physical Exam: PE: Constitutional: Well developed, well nourished, no acute distress, non-toxic appearance. [] HENT: Normocephalic, atraumatic, bilateral external ears normal, oropharynx moist, no oral exudates, nose normal. [] Eyes: Photophobia. PERRLA, EOMI, conjunctiva normal, no discharge. [] Neck: Normal range of motion, no tenderness, supple, no stridor. [] Cardiovascular: Heart rate regular rhythm, no murmur [] Lungs & Thorax: Bilateral breath sounds clear to auscultation [] Abdomen: Bowel sounds normal, soft, no tenderness, no masses, no pulsatile masses. [] Skin: Warm, dry, no erythema, no rash. [] Back: No tenderness, no CVA tenderness. [] Extremities: No tenderness, no cyanosis, no clubbing, ROM intact, no edema. [] Neurologic: Alert and oriented X 3, normal motor function, normal sensory function, no focal deficits noted. [] Psychologic: Affect normal, judgement normal, mood normal. [] Current Patient Data: Labs: Laboratory Tests Test 02/20/20 09:53 White Blood Count 7.5 x10^3/uL (4.0-11.0) Red Blood Count 4.04 x10^6/uL (3.50-5.40) Hemoglobin 13.3 g/dL (12.0-15.5) Hematocrit 39.4 % (36.0-47.0) Mean Corpuscular Volume 98 fL (79-100) Mean Corpuscular Hemoglobin 33 pg (25-35) Mean Corpuscular Hemoglobin Concent 34 g/dL (31-37) Red Cell Distribution Width 13.6 % (11.5-14.5) Platelet Count 271 x10^3/uL (140-400) Neutrophils (%) (Auto) 77 % (31-73) H Lymphocytes (%) (Auto) 16 % (24-48) L Monocytes (%) (Auto) 5 % (0-9) Eosinophils (%) (Auto) 1 % (0-3) Basophils (%) (Auto) 0 % (0-3) Neutrophils # (Auto) 5.8 x10^3uL (1.8-7.7) Lymphocytes # (Auto) 1.2 x10^3/uL (1.0-4.8) Monocytes # (Auto) 0.4 x10^3/uL (0.0-1.1) Eosinophils # (Auto) 0.1 x10^3/uL (0.0-0.7) Basophils # (Auto) 0.0 x10^3/uL (0.0-0.2) Sodium Level 138 mmol/L (136-145) Potassium Level 3.8 mmol/L (3.5-5.1) Chloride Level 103 mmol/L (98-107) Carbon Dioxide Level 25 mmol/L (21-32) Anion Gap 10 (6-14) Blood Urea Nitrogen 9 mg/dL (7-20) Creatinine 0.7 mg/dL (0.6-1.0) Estimated GFR (Cockcroft-Gault) 93.6 BUN/Creatinine Ratio 13 (6-20) Glucose Level 105 mg/dL (70-99) H Calcium Level 8.8 mg/dL (8.5-10.1) Total Bilirubin 0.3 mg/dL (0.2-1.0) Aspartate Amino Transferase (AST) 30 U/L (15-37) Alanine Aminotransferase (ALT) 150 U/L (14-59) H Alkaline Phosphatase 188 U/L (46-116) H Total Protein 7.0 g/dL (6.4-8.2) Albumin 3.4 g/dL (3.4-5.0) Albumin/Globulin Ratio 0.9 (1.0-1.7) L Vital Signs: Vital Signs Date Time Temp Pulse Resp B/P (MAP) Pulse Ox O2 Delivery O2 Flow Rate FiO2 02/20/20 09:32 98.2 88 16 117/79 (92) 97 Room Air EKG: EKG: [] Radiology/Procedures: Radiology/Procedures: [] Course & Med Decision Making: Course & Med Decision Making Pertinent Labs and Imaging studies reviewed. (See chart for details) For her headache, I have ordered 1 L normal saline, 50 mg of Benadryl, and 8 mg of Zofran. Patient states that her headache is greater than 50% improved. She feels ready to be discharged. She is stable for discharge at this time. [] Dragon Disclaimer: Dragon Disclaimer: This electronic medical record was generated, in whole or in part, using a voice recognition dictation system. Departure Departure: Impression: Primary Impression: Migraine headache Qualified Codes: G43.019 - Migraine without aura, intractable, without status migrainosus Disposition: 01 HOME, SELF-CARE Condition: IMPROVED Referrals: RONIT PAINTER DO, [facility] (PCP) Patient Instructions: Migraine Headache, [id number] DARRICK SPARROW DO February 20, 2020 10:26
[2020-02-20] MEDS: diphenhydrAMINE 50 MG/ML VIAL IVP ONE (11:03)
== END 2020-02-20 11:50 | disposition home or self-care (01) ==
LOC: ER 09:32
DX: G43.109 Migraine with aura, not intractable, without status migrainosus (principal); R11.2 Nausea with vomiting, unspecified; I10 Essential (primary) hypertension; I25.2 Old myocardial infarction; G89.29 Other chronic pain; Z90.710 Acquired absence of both cervix and uterus; Z98.890 Other specified postprocedural states; Z88.2 Allergy status to sulfonamides; Z88.1 Allergy status to other antibiotic agents; Z88.6 Allergy status to analgesic agent; Z88.4 Allergy status to anesthetic agent; Z88.8 Allergy status to other drugs, medicaments and biological substances
CPT/HCPCS: 36415; 80053; 85025; 96361; 96374; 96375; 99284; J1200; J2405; J7030

== ENCOUNTER 2020-03-25 08:51 | Emergency (ER) | payer OTHER ==
[~2020-03-25] VITALS: Ht 167.6 cm; Wt 96.7 kg
[2020-03-25 08:57] VITALS: BP 120/95
--- NOTE | 2020-03-25 09:14 | PHYS DOC ---
Past History Past Medical History: Hypertension, Migraines, Stroke, Other Additional Past Medical Histor: Rebekah-Danols syndrome; chronic back pain Past Surgical History: Hysterectomy, Other Additional Past Surgical Histo: right ankle fx repair Alcohol Use: Occasionally Drug Use: None General Adult EDM: Chief Complaint: FACE PAIN HPI: HPI: Patient is a 39-year-old female who presents to the emergency department for evaluation. The primary reason she is coming to the emergency department is that she has having some abdominal pain which began overnight. She states he has had some Nausea and decreased appetite over the past few days but has not had any vomiting. She has not had any fevers or chills, diarrhea, chest pain or shortness of breath. She also reports onset of an aura, and mild headache, similar to prior early migraine headaches that she has had in the past. She states the headache is not different than her prior migraines and is not "the worst headache of her life", and did not begin abruptly or suddenly. There are no alleviating or exacerbating factors to her symptoms otherwise. Review of Systems: Review of Systems: Constitutional: Denies fever or chills Eyes: Denies change in visual acuity HENT: Denies nasal congestion or sore throat Respiratory: Denies cough or shortness of breath Cardiovascular: Denies chest pain or edema GI: Denies vomiting, bloody stools or diarrhea : Denies dysuria Musculoskeletal: Denies back pain or joint pain Integument: Denies rash Neurologic: Denies focal weakness or sensory changes Endocrine: Denies polyuria or polydipsia Lymphatic: Denies swollen glands Psychiatric: Denies depression or anxiety Heart Score: Risk Factors: Risk Factors: DM, Current or recent (<one month) smoker, HTN, HLP, family history of CAD, obesity. Risk Scores: Score 0 - 3: 2.5% MACE over next 6 weeks - Discharge Home Score 4 - 6: 20.3% MACE over next 6 weeks - Admit for Clinical Observation Score 7 - 10: 72.7% MACE over next 6 weeks - Early Invasive Strategies Allergies: Allergies: Allergies Coded Allergies Type Severity Reaction Last Updated Verified Sulfa (Sulfonamide Antibiotics) Allergy Severe 02/17/19 Yes tetracycline Allergy Severe . 02/20/20 Yes morphine Allergy Intermediate 02/17/19 Yes acetaminophen Allergy Unknown 02/17/19 Yes codeine Allergy Unknown 02/17/19 Yes ketorolac Allergy Unknown 12/13/19 Yes metoclopramide Allergy Unknown 12/13/19 Yes oxycodone Allergy Unknown 02/17/19 Yes sumatriptan Allergy Unknown 12/13/19 Yes tramadol Allergy Unknown 02/17/19 Yes Physical Exam: PE: PHYSICAL EXAM: CONSTITUTIONAL: Well developed, well nourished HEAD: normocephalic, atraumatic EENT: PERRL, EOMI. Conjunctivae normal color, sclerae non-icteric; moist mucous membranes. NECK: Supple, non-tender; no meningismus. LUNGS: Lungs CTA, breathing even and unlabored. Normal air movement. HEART: Regular rate and rhythm, no murmur CHEST: No deformity; non-tender ABDOMEN: The abdomen is soft, there is focal right lower quadrant tenderness to palpation without rebound or guarding, the remainder the abdomen is soft and non-tender, no masses or bruits. EXTREM: Normal ROM; no deformity, no calf tenderness. Normal pulses palpable in all extremities. There is no pedal edema. SKIN: No rash; no diaphoresis NEURO: Alert; normal speech and cognition; CN's grossly intact; strength grossly intact without focal deficit. BACK: No CVA TTP. Current Patient Data: Labs: Laboratory Tests Test 03/25/20 09:55 03/25/20 09:58 Urine Collection Type Unknown Urine Color Straw Urine Clarity Clear Urine pH 6.5 Urine Specific [place] <=1.005 Urine Protein Neg Urine Glucose (UA) Neg mg/dL Urine Ketones (Stick) Neg mg/dL Urine Blood Neg Urine Nitrite Neg Urine Bilirubin Neg Urine Urobilinogen Dipstick 0.2 mg/dL Urine Leukocyte Esterase Neg Urine RBC 1-2 /HPF Urine WBC Occ /HPF Urine Squamous Epithelial Cells Many /LPF Urine Bacteria Few /HPF White Blood Count 9.1 x10^3/uL Red Blood Count 3.94 x10^6/uL Hemoglobin 13.3 g/dL Hematocrit 39.3 % Mean Corpuscular Volume 100 fL Mean Corpuscular Hemoglobin 34 pg Mean Corpuscular Hemoglobin Concent 34 g/dL Red Cell Distribution Width 13.7 % Platelet Count 259 x10^3/uL Neutrophils (%) (Auto) 74 % Lymphocytes (%) (Auto) 20 % Monocytes (%) (Auto) 6 % Eosinophils (%) (Auto) 0 % Basophils (%) (Auto) 0 % Neutrophils # (Auto) 6.8 x10^3uL Lymphocytes # (Auto) 1.8 x10^3/uL Monocytes # (Auto) 0.5 x10^3/uL Eosinophils # (Auto) 0.0 x10^3/uL Basophils # (Auto) 0.0 x10^3/uL Sodium Level 136 mmol/L Potassium Level 3.9 mmol/L Chloride Level 102 mmol/L Carbon Dioxide Level 28 mmol/L Anion Gap 6 Blood Urea Nitrogen 10 mg/dL Creatinine 0.8 mg/dL Estimated GFR (Cockcroft-Gault) 80.3 BUN/Creatinine Ratio 13 Glucose Level 95 mg/dL Calcium Level 8.6 mg/dL Total Bilirubin 0.2 mg/dL Aspartate Amino Transf (AST/SGOT) 7 U/L Alanine Aminotransferase (ALT/SGPT) 52 U/L Alkaline Phosphatase 112 U/L Total Protein 7.0 g/dL Albumin 3.3 g/dL Albumin/Globulin Ratio 0.9 Lipase 129 U/L Current Medications Medications (Trade) Dose Ordered Sig/Mayito Route PRN Reason Start Time Stop Time Status Last Admin Dose Admin Prochlorperazine Edisylate (Compazine) 10 mg 1X ONCE IV 03/25/20 09:15 03/25/20 09:37 DC 03/25/20 10:04 Diphenhydramine HCl (Benadryl) 12.5 mg 1X ONCE IVP 03/25/20 09:40 03/25/20 09:41 DC 03/25/20 10:04 Sodium Chloride 1,000 ml @ 1,000 mls/hr 1X ONCE IV 03/25/20 09:15 03/25/20 10:14 DC 03/25/20 10:04 Iohexol (Omnipaque 300 Mg/ml) 75 ml 1X ONCE IV 03/25/20 09:30 03/25/20 09:35 DC 03/25/20 09:41 Info (Do NOT chart on this entry -- for MONITORING) 1 each PRN DAILY PRN MC SEE COMMENTS 03/25/20 09:45 03/27/20 09:44 EKG: EKG: [] Radiology/Procedures: Radiology/Procedures: PROCEDURE: CT ABD PELV W/ IV CONTRST ONLY CT scan of the abdomen and pelvis with contrast 03/25/2020 CLINICAL HISTORY: Left-sided abdominal pain. TECHNIQUE: After the intravenous administration 75 cc of Omnipaque 300, contiguous, 5 mm axial sections were obtained through the abdomen and pelvis. One or more of the following individualized dose reduction techniques were utilized for this study: 1. Automated exposure control. 2. Adjustment of the mA and/or kV according to patient size. 3. Use of iterative reconstruction technique. FINDINGS: Images through the lung bases demonstrate minimal dependent subsegmental atelectasis bilaterally. The liver, spleen, pancreas, adrenal glands and kidneys are within normal limits. The abdominal aorta tapers normally. The gallbladder is well-distended. No free fluid or free air is seen within the abdomen. The appendix is well-visualized and is within normal limits. Images through the pelvis demonstrate the urinary bladder distended with urine. Calcifications are seen within the pelvis consistent with phleboliths. No free fluid is seen. Minimal S-shaped curvature of the thoracic lumbar spine is noted. Degenerative changes are seen involving the lower thoracic and throughout the lumbar spine. IMPRESSION: No acute abnormality is seen.[] Course & Med Decision Making: Course & Med Decision Making Pertinent Labs and Imaging studies reviewed. (See chart for details) [] 11:10 AM: The patient's condition remains stable. She is feeling better her headache has improved. I discussed importance of close outpatient follow-up and return precautions. I discussed that the medications that the patient was given in the emergency department would cause drowsiness and that she should not operate motor vehicle or other machinery until effects of this medication have worn off. She expressed understanding. Marco Disclaimer: Marco Disclaimer: This electronic medical record was generated, in whole or in part, using a voice recognition dictation system. Departure Departure: Impression: Primary Impression: Abdominal pain Additional Impression: Migraine headache Disposition: HOME/RESIDENCE PRIOR TO ADM Condition: STABLE Referrals: NON,STAFF (PCP) Patient Instructions: Abdominal Pain (Nonspecific), Migraine Headache Justification of Admission: Justification of Admission: Justification of Admission Dx: N/A NIKHIL FARRAR MD Mar 25, 2020 09:14
[2020-03-25] MEDS ORDERED: IV NORMAL SALINE 1,000ML 1,000 ML IV ONE (09:15)
[2020-03-25] MEDS ORDERED: PROCHLORPERAZINE 10 MG/2 ML VIAL. IV ONE (09:15)
[2020-03-25] MEDS ORDERED: IOHEXOL 300 MG/ML 75 ML VIAL. IV ONE (09:30)
[2020-03-25] MEDS ORDERED: diphenhydrAMINE 50 MG/ML VIAL IVP ONE (09:40)
[2020-03-25] MEDS ORDERED: CONTRAST GIVEN MC PRN (09:45)
--- NOTE | 2020-03-25 10:09 | RAD ---
CT scan of the abdomen and pelvis with contrast 03/25/2020 CLINICAL HISTORY: Left-sided abdominal pain. TECHNIQUE: After the intravenous administration 75 cc of Omnipaque 300, contiguous, 5 mm axial sections were obtained through the abdomen and pelvis. One or more of the following individualized dose reduction techniques were utilized for this study: 1. Automated exposure control. 2. Adjustment of the mA and/or kV according to patient size. 3. Use of iterative reconstruction technique. FINDINGS: Images through the lung bases demonstrate minimal dependent subsegmental atelectasis bilaterally. The liver, spleen, pancreas, adrenal glands and kidneys are within normal limits. The abdominal aorta tapers normally. The gallbladder is well-distended. No free fluid or free air is seen within the abdomen. The appendix is well-visualized and is within normal limits. Images through the pelvis demonstrate the urinary bladder distended with urine. Calcifications are seen within the pelvis consistent with phleboliths. No free fluid is seen. Minimal S-shaped curvature of the thoracic lumbar spine is noted. Degenerative changes are seen involving the lower thoracic and throughout the lumbar spine. IMPRESSION: No acute abnormality is seen. Electronically signed by: Mc Hill MD (03/25/2020 10:06 AM) [id number]
[2020-03-25 10:23] LABS: CALCIUM 8.6 mg/dL (8.5-10.1); CREATININE 0.8 mg/dL (0.6-1.0); GFR 80.3; POTASSIUM 3.9 mmol/L (3.5-5.1)
[2020-03-25 10:24] LABS: BASO % 0 % (0-3); EOS % 0 % (0-3); HEMATOCRIT 39.3 % (36.0-47.0); HEMOGLOBIN 13.3 g/dL (12.0-15.5); LYMPH # 1.8 x10^3/uL (1.0-4.8); LYMPH % 20 % (24-48); MEAN CORPUSCULAR HEMOGLOBIN 34 pg (25-35); MEAN CORPUSCULAR HGB CONC 34 g/dL (31-37); MEAN CORPUSCULAR VOLUME 100 fL (79-100); MONO # 0.5 x10^3/uL (0.0-1.1); MONO % 6 % (0-9); NEUT # 6.8 x10^3uL (1.8-7.7); NEUT % 74 % (31-73); PLATELET COUNT 259 x10^3/uL (140-400); RED BLOOD COUNT 3.94 x10^6/uL (3.50-5.40); RED CELL DISTRIBUTION WIDTH 13.7 % (11.5-14.5); WHITE BLOOD COUNT 9.1 x10^3/uL (4.0-11.0)
[2020-03-25 10:29] LABS: ALBUMIN 3.3 g/dL (3.4-5.0); ALBUMIN/GLOBULIN RATIO 0.9 (1.0-1.7); TOTAL BILIRUBIN 0.2 mg/dL (0.2-1.0)
[2020-03-25 10:47] LABS: BACTERIA,URINE FEW /HPF (0-FEW); BILIRUBIN,URINE NEG (NEG); CLARITY,URINE CLEAR; COLOR,URINE STRAW; GLUCOSE,URINE NEG (NEG); NITRITE,URINE NEG (NEG); UROBILINOGEN,URINE 0.2 mg/dL (0.2 mg/dL); WBC,URINE OCC /HPF (0-4)
[2020-03-25 10:48] LABS: SQUAMOUS EPITHELIAL CELL,UR MANY /LPF
== END 2020-03-25 11:30 | disposition home or self-care (01) ==
LOC: ER 08:51
DX: G43.909 Migraine, unspecified, not intractable, without status migrainosus (principal); R10.31 Right lower quadrant pain; I10 Essential (primary) hypertension; Z86.73 Personal history of transient ischemic attack (TIA), and cerebral infarction without residual deficits; G89.29 Other chronic pain; Z88.2 Allergy status to sulfonamides; Z88.1 Allergy status to other antibiotic agents; Z88.5 Allergy status to narcotic agent; Z88.6 Allergy status to analgesic agent; Z88.8 Allergy status to other drugs, medicaments and biological substances
CPT/HCPCS: 36415; 74177; 80053; 81001; 83690; 85025; 96374; 96375; 99285; J0780; J1200; Q9967; J7030

== ENCOUNTER 2020-09-14 09:52 | Emergency (ER) | payer OTHER ==
[~2020-09-14] VITALS: Ht 167.6 cm; Wt 84.0 kg
[2020-09-14 10:09] VITALS: BP 137/93
--- NOTE | 2020-09-14 11:20 | PHYS DOC ---
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 She has extensive past medical history my significant for asthma and Rebekah-Danlos. Reports she also has seasonal allergies and has been having URI-like symptoms for past 1 week. Nonetheless, patient is here today concerned about potential COVID-19 infection as she just found out she was exposed to a known Covid positive individual approximately 2 weeks ago. Denies any fever, no respiratory distress but reports increased URI-like symptoms such as rhinorrhea, ear fullness and dry nonproductive cough for which she has been using Mucinex with minimal relief Review of Systems Review of Systems Fourteen body systems of review of systems have been reviewed. See HPI for pertinent positives and negative responses, other lazra all other systems are negative, non-pertinent or non-contributory Allergies Allergies Allergies Coded Allergies Type Severity Reaction Last Updated Verified Sulfa (Sulfonamide Antibiotics) Allergy Severe 02/17/19 Yes tetracycline Allergy Severe . 02/20/20 Yes morphine Allergy Intermediate 02/17/19 Yes acetaminophen Allergy Unknown 02/17/19 Yes aspirin Allergy Unknown Unknown 09/14/20 Yes codeine Allergy Unknown 02/17/19 Yes ketorolac Allergy Unknown 12/13/19 Yes metoclopramide Allergy Unknown 12/13/19 Yes oxycodone Allergy Unknown 02/17/19 Yes sumatriptan Allergy Unknown 12/13/19 Yes tramadol Allergy Unknown 02/17/19 Yes Physical Exam Physical Exam Constitutional: Well developed, well nourished, no acute distress, non-toxic appearance. HENT: Normocephalic, atraumatic, bilateral external ears normal, oropharynx moist, no oral exudates, moderate postnasal drip present, clear rhinorrhea present, external nose normal. Eyes: PERRLA, EOMI, conjunctiva normal, no discharge. Neck: Normal range of motion, no tenderness, supple, no stridor. Cardiovascular: Heart rate regular, sinus rhythm, no murmurs rubs or gallops Lungs & Thorax: Bilateral breath sounds clear to auscultation Abdomen: Bowel sounds normal, soft, no tenderness, no masses, no pulsatile masses. Nonsurgical abdomen, no peritoneal signs Skin: Warm, dry, no erythema, no rash. Back: No tenderness, no CVA tenderness. Extremities: No tenderness, no cyanosis, no clubbing, ROM intact, no edema. Neurologic: Alert and oriented X 3, grossly normal motor & sensory function, no focal deficits noted. Psychologic: Affect normal, judgement normal, mood normal. Current Patient Data Vital Signs Vital Signs Date Time Temp Pulse Resp B/P (MAP) Pulse Ox O2 Delivery O2 Flow Rate FiO2 09/14/20 10:09 98.1 92 20 137/93 (108) 99 Room Air EKG EKG [] Radiology/Procedures Radiology/Procedures [] Heart Score HEART Score for Chest Pain: HEART Score for Chest Pain Response (Comments) Value History Slighlty/Non-Suspicious 0 Age < 45 0 Risk Factors 1 or 2 Risk Factors 1 Total 1 Risk Factors: Risk Factors: DM, Current or recent (<one month) smoker, HTN, HLP, family history of CAD, obesity. Risk Scores: Risk Factors: DM, Current or recent (<one month) smoker, HTN, HLP, family history of CAD, obesity. Course & Med Decision Making Course & Med Decision Making ABCs unremarkable Patient here for URI-like symptoms which is likely transient and self-limiting in nature. Cannot exclude COVID-19 infection given current pandemic and so, patient tested for COVID-19. She is stable, has all medication she requires at home and was discharged with self quarantine instructions Advised patient to stop Mucinex. She is currently on antihistamine and Flonase. She has rescue inhaler at home for asthma but there is no concern for potential exacerbation and/or indication for further diagnostic work-up such as radiographs of chest at this time Strict return precautions were discussed with good understanding by patient, all questions and concerns addressed prior to ER departure in stable condition Dragon Disclaimer Dragon Disclaimer This electronic medical record was generated, in whole or in part, using a voice recognition dictation system. PERC Rule for PE PERC Rule for PE Response (Comments) Value Age > 50: No 0 HR > 100: No 0 Sa02 on room air <95%: No 0 Unilateral leg swelling: No 0 Hemoptysis: No 0 Recent surgery or trauma: No 0 Prior PE or DVT: No 0 Hormone use: No 0 Total 0 Departure Departure: Impression: Primary Impression: Person under investigation for COVID-19 Disposition: 01 DC HOME SELF CARE/HOMELESS Condition: STABLE Referrals: AMADO MARTINS (PCP) Additional Instructions: As discussed prior to ER departure, please call your primary care physician to notify them of your ER visit today. As discussed, there were no emergent and/or surgical findings today. I discussed there was no indication for further diagnostic work-up such as laboratory analysis and/or imaging If any concerning signs or symptoms present prior to outpatient follow-up please do not hesitate to come back for repeat examination Please utilize the instructions below as you are now a person under investigation for COVID-19. Please disregard any notes of taking NSAIDs/Tylenol given your past medical history. Home Care Instructions for Patients with Mild Respiratory Infection Most people with respiratory infections like colds, the flu, and Coronavirus Disease (COVID-19) will have mild illness and can get better with appropriate home care and without the need to see a provider. People who are elderly, pr egnant, or have a weak immune system, or other medical problem are at higher risk of more serious illness or complications. It is recommended that they carefully monitor their symptoms closely and seek medical care early if their symptoms get worse. Treatment There is no specific treatment for most viruses including those that that cause the common cold and those that cause COVID-19. Sometimes there is treatment for the viruses that cause influenza if given early. Antibiotics treat infections caused by bacteria, but they do not work against viruses.Most people recover on their own from these viruses, including COVID-19. Here are steps that you can take to help you get better: Rest Drink plenty of fluids Take fmeb-hkc-exapybd cold and flu medications to reduce fever and pain. Follow the instructions on the package, unless your doctor gave you instructions. Note that these medicines do not ``cure the illness and therefore do not stop you from spreading germs. Children should not be given medication that contains aspirin (acetylsalicylic acid) because it can cause a rare but serious illness called Denis syndrome. Medicines without aspirin include acetaminophen (Tylenol) and ibuprofen (Advil, Motrin). Children younger than age 2 should not be given any owwh-icl-jfpueuq cold medications without first speaking with a doctor.Seeking Medical Care You should seek medical care if you are not getting better within a week, or if your symptoms get worse. If you are elderly, , have a weak immune system , or other medical problems, call your doctor right away. It is best to call ahead of time to discuss your symptoms, if possible. This may allow you to receive the advice you need by phone. By avoiding a visit to a healthcare facility, you protect yourself from getting a new infection and protect others from catching an infection from you. If you do visit a healthcare facility, put on a mask to protect other patients and staff. It is recommended that you seek medical care for serious symptoms, such as: People with potentially life-threatening symptoms should call 911. If possible, put on a facemask before emergency medical services arrive. PROTECTING OTHERS Follow the steps below to help prevent the disease from spreading to people in your home and community.Stay home when you are sick Stay home - do not go to work, school, or public areas. Stay home for at least 24 hours after your symptoms have gone away without the use of fever-reducing medicines. If you must leave home while you are sick, try to avoid using public transportation, ride-shares, and taxis. Wear a mask if possible. Separate yourself from other people and animals in your home Stay in a specific room and away from other people in your home as much as possible. Use a separate bathroom, if available. Try to stay at least 6 feet from others. Do not handle pets or other animals while you are sick. Cover your coughs and sneezes Cover your mouth and nose with a tissue when you cough or sneeze. Throw used tissues in a lined trash can; immediately wash your hands. Avoid sharing personal household items Do not share dishes, drinking glasses, cups, eating utensils, towels, or bedding with other people or pets in your home. Wash them thoroughly with soap and water after use. Clean your hands often Wash your hands often with soap and water for at least 20 seconds. If soap and water are not available, clean your hands with an alcohol-based hand gis consultant that contains at least 60% alcohol, covering all surfaces of your hands and rubbing them together until they feel dry. Use soap and water if your hands are visibly dirty. Clean all ``high-touch surfaces every day High touch surfaces include counters, tabletops, doorknobs, bathroom fixtures, toilets, phones, keyboards, tablets, and bedside tables. Also, clean any surfaces that may have body fluids on them. Use a household cleaning spray or wipe, according to the product label instructions. COVID-19 (Novel Coronavirus) FAQs for Inquiring Patients What do you do if you are worried that you have been exposed to COVID-19 but are without any symptoms? If you develop symptoms that may indicate an infection, contact your physician. These include fever, cough, and shortness of breath. Testing is not available for asymptomatic individuals, regardless of travel history. To reduce the chance of getting sick use general infection prevention measures such as hand washing, covering your mouth and nose when you cough or sneeze and discarding any tissues carefully, and staying home when you are sick.Can ex ceptions be made for patients who are really worried and want to be tested? Presently testing is available through all local Department of Public Health and Centers for Disease Control and Prevention in addition to numerous Urgent Care facilities and Pharmacies. Only patients who meet the updated COVID-19 PUI definition may be tested. We do not control or set the PUI definition or evaluation criteria. We are unable to provide testing to patients who do not meet the strict criteria. Should patients cancel or postpone an upcoming trip? The decision about travel is personal and should be made in the context of a persons underlying health conditions, reason for travel and necessity of travel. Travel insurance generally does not cover cancellations due to concerns of infectious disease outbreaks. The Center for Disease Control has a section on travel notices. Situations are changing frequently and you should monitor the site for updates. Should situations change rapidly in a foreign country while they are traveling, you could be subject to quarantine or restrictions upon return to the [place]. It is best to have a plan on how to return urgently if needed during a trip abroad. Because of how air circulates and is filtered on airplanes, most viruses do not spread easily on airplanes. CDC does not recommend use of facemasks during air travel.What other general precautions are advised? Patients should be instructed to: Avoid close contact with people who are sick. Avoid touching your eyes, nose and mouth. Stay home from work or school when they are sick. If you have a fever, you should remain home until 24 hours after fever resolves. Clean and disinfect frequently touched objects and surfaces using a regular household cleaning spray or wipe. Sneeze/cough into their elbow, not your hand. Practice frequent hand hygiene with soap and water (at least 20 seconds) or alcohol-based hand rub. Consider avoiding crowded places or mass gatherings, especially if you are immunocompromised or have chronic lung disease. There is no evidence to support transmission of COVID-19 from goods imported from [place]. Are there any special precautions that are recommended if I am ? There is not yet any information available about the susceptibility of women to COVID-19. As a general rule, women may be more susceptible to viral respiratory infections and at risk for more severe illness. The CDC guidance for COVID-19 and has answers to questions about transmission during delivery, as well as other situations. Should food, water, or medications be stockpiled? Should people telecommute? The CDC has excellent information on this. Please visit the CDCs guidance for getting your household ready for COVID-19. What should I do if I start feeling sick at work? And what should the workplace do for anyone exposed? Anyone who is sick with a fever and cough should stay home from work until at least 24 hours after resolution of fever, regardless of concerns for COVID-19. It is still influenza (flu) season and influenza remains far more common. LETICIA MALCOLM DO Sep 14, 2020 11:20
== END 2020-09-14 11:26 | disposition home or self-care (01) ==
LOC: ER 09:52
DX: R05 Cough (principal); J45.909 Unspecified asthma, uncomplicated; G89.29 Other chronic pain; Z20.828 Contact with and (suspected) exposure to other viral communicable diseases; Z88.2 Allergy status to sulfonamides; Z88.1 Allergy status to other antibiotic agents; Z88.5 Allergy status to narcotic agent; Z88.6 Allergy status to analgesic agent
CPT/HCPCS: 99283; C9803; U0003

== ENCOUNTER → 2020-10-22 | Outpatient (CLI) | payer OTHER ==
[~2020-10-22] MED LIST changes: +IOHEXOL 300 MG/ML 75 ML VIAL. IV ONE
--- NOTE | 2020-10-22 14:08 | RAD ---
EXAMINATION: CT THORAX WO/W CLINICAL HISTORY: Chest pain Technique: Spiral CT acquisition of the chest from the thoracic inlet to the upper abdomen following IV contrast. CT Dose Reduction Employed: One or more of the following individualized dose reduction techniques wer e utilized for this examination: 1. Automated exposure control 2. Adjustment of the mA and/or kV ac cording to patient size 3. Use of iterative reconstruction technique. Comparison: 01/05/2020 FINDINGS: Limitations: None. Lines, tubes, and devices: None. Lung parenchyma and pleura: No consolidation. Minimal dependent subsegmental atelectasis in the bilat eral lower lobes. No suspicious pulmonary nodule. Essentially unchanged small peripheral nodules evie g the anterior minor fissure and mid left major fissure which are considered benign. Several tiny sca ttered micronodules again noted in the bilateral lungs, for which no follow-up is required at this ti me. No pleural effusion. Central airways are patent. Thoracic inlet, heart, and mediastinum: No lymphadenopathy in the axillary, mediastinal, or hilar re gions. The thoracic aorta and main pulmonary artery are normal in caliber. The cardiac chambers are n ormal in size. No coronary artery atherosclerotic calcifications are noted, although the study is not optimized for coronary assessment. No pericardial effusion or thickening. Bones and soft tissues: No acute osseous abnormality. Upper abdomen: No abnormality in the imaged upper abdomen. IMPRESSION: No evidence of acute cardiopulmonary abnormality or significant interval change. No suspicious pulmonary nodule visualized. Electronically signed by: Shaheed Garza DO (10/22/2020 2:05 PM) [facility]
== END ==
LOC: CT 12:38
PROVIDERS: ATTEND Family Medicine
DX: R91.8 Other nonspecific abnormal finding of lung field (principal); J98.11 Atelectasis; L92.0 Granuloma annulare
CPT/HCPCS: 71270; Q9967

== ENCOUNTER 2020-12-18 12:06 | Emergency (ER) | payer OTHER ==
[~2020-12-18] VITALS: Ht 167.6 cm; Wt 84.0 kg
[2020-12-18 12:53] LABS: BASO % 0 % (0-3); EOS % 0 % (0-3); HEMATOCRIT 44.8 % (36.0-47.0); HEMOGLOBIN 14.6 g/dL (12.0-15.5); LYMPH # 1.8 x10^3/uL (1.0-4.8); LYMPH % 22 % (24-48); MEAN CORPUSCULAR HEMOGLOBIN 31 pg (25-35); MEAN CORPUSCULAR HGB CONC 33 g/dL (31-37); MEAN CORPUSCULAR VOLUME 94 fL (79-100); MONO # 0.4 x10^3/uL (0.0-1.1); MONO % 5 % (0-9); NEUT # 6.1 x10^3uL (1.8-7.7); NEUT % 73 % (31-73); PLATELET COUNT 276 x10^3/uL (140-400); RED BLOOD COUNT 4.77 x10^6/uL (3.50-5.40); RED CELL DISTRIBUTION WIDTH 13.9 % (11.5-14.5); WHITE BLOOD COUNT 8.4 x10^3/uL (4.0-11.0)
[2020-12-18 12:55] LABS: ANION GAP 16 (6-14); BLOOD UREA NITROGEN 9 mg/dL (7-20); BUN/CREATININE RATIO 11 (6-20); CALCIUM 9.5 mg/dL (8.5-10.1); CARBON DIOXIDE 22 mmol/L (21-32); CHLORIDE 105 mmol/L (98-107); CREATININE 0.8 mg/dL (0.6-1.0); GFR 79.9; GLUCOSE 104 mg/dL (70-99); POTASSIUM 3.5 mmol/L (3.5-5.1); SODIUM 143 mmol/L (136-145)
[2020-12-18] MEDS ORDERED: IV NORMAL SALINE 1,000ML 1,000 ML IV ONE (13:00)
--- NOTE | 2020-12-18 13:09 | RAD ---
Single view chest dated 12/18/2020. Comparison made to 10/22/2020. CLINICAL INDICATION: Chest pain. FINDINGS: Single upright portable exam performed. Heart and mediastinal contours are stable. There are some pro minent perihilar linear markings, unchanged. No consolidation or pleural effusion. No pneumothorax. IMPRESSION: No acute radiographic abnormality. Stable findings compared to 10/22/2020. Electronically signed by: Jeff Manrique MD (12/18/2020 1:06 PM) [id number]
[2020-12-18 13:11] LABS: ALBUMIN 3.8 g/dL (3.4-5.0); ALK PHOS 166 U/L (46-116); ALT (SGPT) 45 U/L (14-59); AST (SGOT) 10 U/L (15-37); DIRECT BILIRUBIN 0.1 mg/dL (0.0-0.2); LIPASE 191 U/L (73-393); MAGNESIUM 1.8 mg/dL (1.8-2.4); TOTAL BILIRUBIN 0.3 mg/dL (0.2-1.0); TOTAL PROTEIN 7.5 g/dL (6.4-8.2)
[2020-12-18] MEDS ORDERED: SUCRALFATE 1 GM TABLET. PO ONE (13:30)
[2020-12-18] MEDS ORDERED: CONTRAST GIVEN. MC PRN (13:30)
[2020-12-18] MEDS ORDERED: IOHEXOL 300 MG/ML 75 ML VIAL. IV ONE (13:30)
--- NOTE | 2020-12-18 13:54 | EKG ---
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
--- NOTE | 2020-12-18 14:10 | RAD ---
CTA chest with contrast dated 12/18/2020. Comparison made to 10/22/2020. CLINICAL INDICATION: Chest pain and shortness of breath. Elevated d-dimer. TECHNIQUE: Contiguous axial imaging the chest performed following the intravenous administration of 75 cc Isovue -370. Study was performed as dedicated PE protocol with thin cut coronal MIPS 3-D reconstruction. One or more of the following individualized dose reduction techniques were utilized for this examinat ion: 1. Automated exposure control 2. Adjustment of the mA and/or kV according to patient size 3. Use of iterative reconstruction technique. FINDINGS: Contrast bolus is adequate. No evidence of central, lobar or segmental pulmonary embolus. Subsegmenta l branches are not well evaluated based on technique. Heart size is upper limits of normal. No pericardial effusion. No mediastinal, hilar or axillary lymp hadenopathy. Thyroid gland unremarkable. Central airways are patent. There is some mild patchy groundglass opacity in the posterior aspect of the right upper lobe on images 46 through 50. Minimal dependent patchy opacity in the left lower lobe . Lungs are otherwise clear. No consolidation or pleural effusion. There are a few scattered calcifie d granuloma. Limited images of the upper abdomen are unremarkable. No acute bony abnormality. IMPRESSION: 1. No evidence of central, lobar or segmental pulmonary embolus. 2. Minimal patchy groundglass opacity in the right upper lobe and bilateral lower lobes, nonspecific. Electronically signed by: Jeff Manrique MD (12/18/2020 2:07 PM) [id number]
[2020-12-18 14:27] VITALS: BP 136/91
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
== END 2020-12-18 14:42 | disposition home or self-care (01) ==
LOC: ER 12:06
DX: B34.9 Viral infection, unspecified (principal); R07.89 Other chest pain; R06.02 Shortness of breath; J45.909 Unspecified asthma, uncomplicated; G89.29 Other chronic pain; Z90.710 Acquired absence of both cervix and uterus; Z88.2 Allergy status to sulfonamides; Z88.6 Allergy status to analgesic agent; Z88.5 Allergy status to narcotic agent; Z88.8 Allergy status to other drugs, medicaments and biological substances; Z88.1 Allergy status to other antibiotic agents
CPT/HCPCS: 36415; 71045; 71275; 80053; 80076; 82553; 83690; 83735; 83880; 84443; 84484; 85025; 85379; 85610; 85730; 93005; 96361; 96374; 96375; 99285; J2060; J3010; J7030; Q9967

== ENCOUNTER → 2020-12-18 | Day surgery (SDC) | payer OTHER ==
[~2020-12-18] MED LIST changes: -IOHEXOL 300 MG/ML 75 ML VIAL. IV ONE
[2020-12-18 11:29] VITALS: BP 127/81
== END | disposition home or self-care (01) ==
LOC: SURG 11:20
PROVIDERS: ATTEND Anesthesiology
DX: M54.12 Radiculopathy, cervical region (principal); Q79.60 Ehlers-Danlos syndrome, unspecified; R25.2 Cramp and spasm; M47.816 Spondylosis without myelopathy or radiculopathy, lumbar region; M19.90 Unspecified osteoarthritis, unspecified site; G89.4 Chronic pain syndrome; I25.2 Old myocardial infarction; F17.200 Nicotine dependence, unspecified, uncomplicated; J45.909 Unspecified asthma, uncomplicated; F41.9 Anxiety disorder, unspecified; Z88.5 Allergy status to narcotic agent; Z88.8 Allergy status to other drugs, medicaments and biological substances; Z79.899 Other long term (current) drug therapy; Z88.4 Allergy status to anesthetic agent; Z90.710 Acquired absence of both cervix and uterus; Z98.890 Other specified postprocedural states; Z86.73 Personal history of transient ischemic attack (TIA), and cerebral infarction without residual deficits; Z88.6 Allergy status to analgesic agent
CPT/HCPCS: 99214; G0463

== ENCOUNTER 2020-12-26 20:26 | Emergency (ER) | payer OTHER ==
[~2020-12-26] VITALS: Ht 167.6 cm; Wt 84.0 kg
[2020-12-26 20:40] VITALS: BP 146/90
--- NOTE | 2020-12-26 21:02 | PHYS DOC ---
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 States that she got the Covid vaccination about 12:30 PM to 1 PM today. States that about an hour later she felt warm, and had a bright red rash on her chest. States that she took 150 mg of Benadryl, and some Pepcid at home. States it made her sleepy but decided to come into the emergency department. Denies headache, changes in vision, oropharyngeal edema, pain or trouble swallowing, chest pain, shortness of breath, wheezing, abdominal pain, nausea, vomiting, diarrhea, lightheadedness or syncope. States that the rash has significantly increased with only little bit left on her chest and she is otherwise now asymptomatic. Review of Systems Review of Systems Review of systems otherwise unremarkable except noted in HPI Allergies Allergies Allergies Coded Allergies Type Severity Reaction Last Updated Verified Sulfa (Sulfonamide Antibiotics) Allergy Severe 02/17/19 Yes tetracycline Allergy Severe . 02/20/20 Yes morphine Allergy Intermediate 02/17/19 Yes acetaminophen Allergy Unknown 02/17/19 Yes aspirin Allergy Unknown Unknown 09/14/20 Yes codeine Allergy Unknown 02/17/19 Yes ketorolac Allergy Unknown 12/13/19 Yes metoclopramide Allergy Unknown 12/13/19 Yes oxycodone Allergy Unknown 02/17/19 Yes sumatriptan Allergy Unknown 12/13/19 Yes tramadol Allergy Unknown 02/17/19 Yes Physical Exam Physical Exam Constitutional: Well developed, well nourished, no acute distress, non-toxic appearance. [] HENT: Normocephalic, atraumatic, bilateral external ears normal, oropharynx moist, no oral exudates, nose normal. [] Eyes: conjunctiva normal, no discharge. [] Neck: Normal range of motion, no tenderness, supple, no stridor. [] Cardiovascular: Sinus tachycardia Lungs & Thorax: Bilateral breath sounds clear to auscultation [] Abdomen: Bowel sounds normal, soft, no tenderness, no masses, no pulsatile masses. [] Skin: Warm, dry, Back: No tenderness, Extremities: No tenderness, no cyanosis, no clubbing, ROM intact, no edema. [] Neurologic: Alert and oriented X 3, normal motor function, normal sensory function, no focal deficits noted. [] Psychologic: Affect normal, judgement normal, mood normal. [] Current Patient Data Vital Signs Vital Signs Date Time Temp Pulse Resp B/P (MAP) Pulse Ox O2 Delivery O2 Flow Rate FiO2 12/26/20 20:40 98.0 116 16 146/90 (108) 99 Room Air EKG EKG [] Radiology/Procedures Radiology/Procedures [] Heart Score C/O Chest Pain: No Risk Factors: Risk Factors: DM, Current or recent (<one month) smoker, HTN, HLP, family history of CAD, obesity. Risk Scores: Risk Factors: DM, Current or recent (<one month) smoker, HTN, HLP, family history of CAD, obesity. Course & Med Decision Making Course & Med Decision Making Patient is a 40-year-old female who presents with concern for allergic reaction, approximately 8 hours after getting her Covid vaccination today Vital signs notable for sinus tachycardia, otherwise not concerning. Tachycardia most likely secondary to the 150 mg of Benadryl she took. Given dexamethasone in the ED. On reassessment, approximately 8 hours after shot patient's rash had completely resolved. Patient was alert and oriented no acute distress. Had no new signs or symptoms of anaphylaxis including but not limited to lightheadedness, hypotension, chest pain/shortness of breath/wheezing, abdominal pain/nausea/vomiting/diarrhea or new skin findings. Patient stated she felt safe to discharge home. Advised to follow-up first thing tomorrow with primary care physician to discuss this and discuss whether she should get second shot or not. Gave strict return precautions to the ED. Patient very grateful, verbalized understanding and agreed with plan of discharge. [] Dragon Disclaimer Dragon Disclaimer This electronic medical record was generated, in whole or in part, using a voice recognition dictation system. Departure Departure: Impression: Primary Impression: Adverse reaction to vaccine Disposition: 01 DC HOME SELF CARE/HOMELESS Condition: GOOD Referrals: NON,STAFF (PCP) Patient Instructions: Drug Allergy Additional Instructions: Please read all the attached information. Please refrain from getting your second vaccine shot until you discuss this with your primary care physician. Please come back to the emergency department immediately with any new or concerning symptoms as discussed. VIOLA CAST MD Dec 26, 2020 21:02
[2020-12-26] MEDS: DEXAMETHASONE 4 MG TABLET PO ONE (21:06)
== END 2020-12-26 21:04 | disposition home or self-care (01) ==
LOC: ER 20:26
DX: T88.1XXA Other complications following immunization, not elsewhere classified, initial encounter (principal); L27.0 Generalized skin eruption due to drugs and medicaments taken internally; T50.Z95A Adverse effect of other vaccines and biological substances, initial encounter; J45.909 Unspecified asthma, uncomplicated; G89.29 Other chronic pain; Z88.2 Allergy status to sulfonamides; Z88.1 Allergy status to other antibiotic agents; Z88.6 Allergy status to analgesic agent; Z88.8 Allergy status to other drugs, medicaments and biological substances; Y92.89 Other specified places as the place of occurrence of the external cause
CPT/HCPCS: 99283; J8540

== ENCOUNTER → 2021-04-02 | Day surgery (SDC) | payer OTHER ==
[~2021-04-02] MED LIST changes: +BUPIVACAINE MPF 0.25% 10 ML VIAL. ONE; +LIDOCAINE 1% PF 30 ML VIAL. ONE
[2021-04-02 16:03] VITALS: BP 119/72
== END | disposition home or self-care (01) ==
LOC: SURG 15:11
PROVIDERS: ATTEND Anesthesiology
DX: M47.816 Spondylosis without myelopathy or radiculopathy, lumbar region (principal); I10 Essential (primary) hypertension; E78.00 Pure hypercholesterolemia, unspecified; F41.0 Panic disorder [episodic paroxysmal anxiety]; F41.9 Anxiety disorder, unspecified; M19.90 Unspecified osteoarthritis, unspecified site; F17.210 Nicotine dependence, cigarettes, uncomplicated; I25.2 Old myocardial infarction; Z88.2 Allergy status to sulfonamides; Z88.8 Allergy status to other drugs, medicaments and biological substances; Z88.5 Allergy status to narcotic agent; Z88.6 Allergy status to analgesic agent; Z79.899 Other long term (current) drug therapy; Z82.3 Family history of stroke; Z86.73 Personal history of transient ischemic attack (TIA), and cerebral infarction without residual deficits; G43.109 Migraine with aura, not intractable, without status migrainosus; Z98.890 Other specified postprocedural states; Z87.39 Personal history of other diseases of the musculoskeletal system and connective tissue; Z90.710 Acquired absence of both cervix and uterus
CPT/HCPCS: 64493; 64494; 64495; J3490

== ENCOUNTER → 2021-04-10 | Outpatient (CLI) | payer OTHER ==
[2021-04-02 16:03] VITALS: BP 119/72
[~2021-04-10] MED LIST changes: -BUPIVACAINE MPF 0.25% 10 ML VIAL. ONE; -LIDOCAINE 1% PF 30 ML VIAL. ONE
--- NOTE | 2021-04-10 15:40 | RAD ---
3 views left ankle without comparison for left ankle pain status post injury. FINDINGS: There is no fracture, dislocation, or acute osseous abnormality. No significant degenerativ e changes. No radiopaque foreign bodies. No evidence of joint effusion. IMPRESSION: 1. No acute osseous abnormality. Electronically signed by: Serge Ricks MD (04/10/2021 3:38 PM) [id number]
== END ==
LOC: RAD 15:13
PROVIDERS: ATTEND Nurse Practitioner Family
DX: S99.912A Unspecified injury of left ankle, initial encounter (principal); X58.XXXA Exposure to other specified factors, initial encounter; Y93.89 Activity, other specified; Y92.89 Other specified places as the place of occurrence of the external cause; Y99.8 Other external cause status
CPT/HCPCS: 73610

== ENCOUNTER 2021-06-05 08:02 | Emergency (ER) | payer OTHER ==
[~2021-06-05] VITALS: Ht 167.6 cm; Wt 69.5 kg
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
[2021-06-05] MEDS ORDERED: IPRATRPIUM/ALBUTEROL 0.5/2.5MG 3 ML NEBU. NEB ONE (08:45)
[2021-06-05] MEDS ORDERED: LORazepam 1 MG TABLET ONE (09:31)
[2021-06-05] MEDS ORDERED: LORazepam 1 MG TABLET PO ONE (09:45)
[2021-06-05 11:13] VITALS: BP 127/82
== END 2021-06-05 11:13 | disposition home or self-care (01) ==
LOC: ER 08:02
DX: J45.21 Mild intermittent asthma with (acute) exacerbation (principal); G89.29 Other chronic pain; Z88.2 Allergy status to sulfonamides; Z88.1 Allergy status to other antibiotic agents; Z88.5 Allergy status to narcotic agent; Z88.6 Allergy status to analgesic agent; Z88.8 Allergy status to other drugs, medicaments and biological substances
CPT/HCPCS: 94640; 99283; 99285